=== PATIENT | female | born 1980 | race Caucasian/White ===

== ENCOUNTER 2019-03-06 12:42 | Inpatient (IN) | payer MEDICAID ==
[2019-03-06] MEDS ORDERED: Sodium Chloride 0.9% 1,000 ML IV ONE (13:14)
[2019-03-06 13:42] LABS: % EOSINOPHILS 0.7 % (0.0-5.0); % LYMPHOCYTES 13.8 % (20.0-50.0); % MONOCYTES 5.6 % (2.0-10.0); % NEUTROPHILS 78.9 % (40.0-80.0); BASOPHILE ABSOLUTE 0.1 Th/cumm (0-0.2); EOSINOPHILE ABSOLUTE 0.1 Th/cmm (0.1-0.4); HEMATOCRIT 38.8 % (41.0-60); HEMOGLOBIN 12.6 gm/dL (12-16); LYMPHOCYTE ABSOLUTE 1.6 Th/cmm (1.5-3.0); MEAN CELL VOLUME 86.8 fl (81-100); MEAN CORPUSCULAR HEMOGLOBIN 28.2 pg (27.0-31.0); MEAN CORPUSCULAR HGB CONC 32.4 pg (28.0-36.0); MEAN PLATELET VOLUME 10.1 fl; MONOCYTE ABSOLUTE 0.6 Th/cmm (0.3-1.0); NEUTROPHILE ABSOLUTE 9.2 Th/cmm (1.8-8.0); PLATELET COUNT 209 Th/cmm (150-400); RED BLOOD COUNT 4.46 Mil/cmm (3.80-5.10); RED CELL DISTRIBUTION WIDTH 12.9 % (11.5-20.0); WHITE BLOOD COUNT 11.6 Th/cmm (4.8-10.8)
--- NOTE | 2019-03-06 14:08 | ED Physician Chart ---
ED Chief Complaint/HPI - Patient Information Date Seen:: 03/06/19 Time Seen:: 12:55 Chief Complaint:: Abdominal Pain History of Present Illness:: onset x 6 hours of diffuse abdominal pain, N/V/D x 13; no report of trauma, H/As , S/T, neck pain, cough, C/P, SOB, A/C, VB, VD, fever, chills, or urinary s/s Allergies:: Allergies Allergy/AdvReac Type Severity Reaction Status Date / Time No Known Allergies Allergy Verified 03/06/19 13:09 Vitals:: Vital Signs - 8 hr 03/06/19 12:55 Temp 97.9 F HR 101 RR 18 BP 92/59 O2 Sat % 98 Historian:: Patient, Family Member Review:: Nurse's Note Reviewed, Old Chart Reviewed ED Review of Systems - Review of Systems General/Constitutional: No fever, No chills, No weight loss, No weakness, No diaphoresis, No edema, No loss of appetite Skin: No skin lesions, No rash, No bruising Head: No headache, No light-headedness Eyes: No loss of vision, No pain, No diplopia ENT: No earache, No nasal drainage, No sore throat, No tinnitus Neck: No neck pain, No swelling, No thyromegaly, No stiffness, No mass noted Cardio Vascular: No chest pain, No palpitations, No PND, No orthopnea, No edema Pulmonary: No SOB, No cough, No sputum, No wheezing GI: Nausea, Vomiting, Diarrhea, Pain, No melena, No hematochezia, No constipation, No hematemesis G/U: No dysuria, No frequency, No hematuria, No nacturia Clinical Nurse Leader: No vaginal discharge, No abnormal vaginal bleed, No contraction Musculoskeletal: No bone or joint pain, No back pain, No muscle pain Endocrine: No polyuria, No polydipsia Psychiatric: Prior psych history, No depression, Anxiety, No suicidal ideation, No homicidal ideation, No auditory hallucination, No visual hallucination Hematopoietic: No bruising, No lymphadenopathy Allergic/Immuno: No urticaria, No angioedema Neurological: No syncope, No focal symptoms, No weakness, No paresthesia, No headache, No seizure, No dizziness, No confusion, No vertigo ED Past Medical History - Past Medical History Obtainable: Yes Past Medical History: Other (Mental Retardation) Family History: HTN Social History: Non Smoker, No Alcohol, No Drug Use, Single, Care Facility Surgical History: None Psychiatricy History: Other (MR) Medication: Reviewed Family Medical History - Family Member Mother History Unknown: Yes ED Physical Exam - Physical Examination General/Constitutional: Awake, Well-developed, well-nourished, Alert, No distress, GCS 15, Non-toxic appearing, Ambulatory Head: Atraumatic Eyes: Lids, conjuctiva normal, PERRL, EOMI Skin: Nl inspection, No rash, No skin lesions, No ecchymosis, Well hydrated, No lymphadenopathy ENMT: External ears, nose nl, TM canals nl, Nasal exam nl, Lips, teeth, gums nl , Oropharynx nl, Tonsils nl Neck: Nontender, Full ROM w/o pain, No JVD, No nuchal rigidity, No bruit, No mass, No stridor Other Neck comments:: supple; no meningeal signs; no cervical tenderness; no bruits Respiratory: Nl effort/Exclusion, Clear to Auscultation, No Wheeze/Rhonchi/Rales Cardio Vascular: RRR, No murmur, gallop, rubs, NL S1 S2, Carotid/Femoral/Distal pulses equal bilaterally GI: No tenderness/rebounding/guarding, No organomegaly, No hernia, Normal BS's, Nondistended, No mass/bruits, No McBurney tenderness, Rectum exam nl Other GI comments:: no pulsatile masses; good BS : No CVA tenderness Extremities: No tenderness or effusion, Full ROM, normal strength in all extremities, No edema, Normal digits & nails Neuro/Psych: Alert/oriented, DTR's symmetric, Normal sensory exam, Normal motor strength, Judgement/insight normal, Mood normal, Normal gait, No focal deficits Misc: Normal back, No paraspinal tenderness ED Labs/Radiology/EKG Results - Lab Results Results: Laboratory Tests 03/06/19 03/06/19 13:30 13:30 WBC 11.6 H RBC 4.46 Hgb 12.6 Hct 38.8 L MCV 86.8 MCH 28.2 MCHC Differential 32.4 RDW 12.9 Plt Count 209 MPV 10.1 Neutrophils % 78.9 Lymphocytes % 13.8 L Monocytes % 5.6 Eosinophils % 0.7 Basophils % 1.0 Serum , Qual NEGATIVE Comments:: Reviewed - Radiology Results Comments:: Refused by pt - EKG Interpretations Comments:: Refused by pt ED Septic Shock - . Is Septic Shock (SBP<90, OR Lactate>4 mmol\L) present?: No - <6hrs of presentation: Vital Signs: Vital Signs - 8 hr 03/06/19 12:55 Temp 97.9 F HR 101 RR 18 BP 92/59 O2 Sat % 98 ED Reassessment (Disposition) - Reassessment Reassessment Condition:: Improved - Diagnosis Diagnosis:: Abdominal Pain; N/V/D; AGE; Gastritis; Anxiety; Dehydration; Hypovolemia; Hypotension; Tachycardia - Aftercare/Follow up Instructions Aftercare/Follow-Up Instructions:: Counseled pt regarding lab results/diagnosis & need follow up, Counseled pt & family regarding lab results/diagnosis & need follow up - Patient Disposition Discharge/Transfer:: Acute Care w/in this hosp Accepting Physician:: Dr. Robison Time Called:: 1445 Time Responded:: 14:45 Admitted to:: Telemetry Spoke to:: Dr. Robison Admitting Medical Physician:: Dr. Robison Condition at Disposition:: Stable, Improved
[2019-03-06 14:32] LABS: URINE SOURCE CLEAN C
[2019-03-06 14:37] LABS: URINE BILIRUBIN NEGATIVE (NEGATIVE); URINE BLOOD NEGATIVE (NEGATIVE); URINE GLUCOSE (UA) NEGATIVE (NEGATIVE); URINE KETONE NEGATIVE (NEGATIVE); URINE LEUKOCYTE ESTERASE NEGATIVE (NEGATIVE); URINE NITRATE NEGATIVE (NEGATIVE); URINE PROTEIN NEGATIVE (NEGATIVE); URINE UROBILINOGEN 0.2 E.U./dL (0.2 - 1.0)
[2019-03-06 15:04] LABS: URINE COLOR STRAW
[2019-03-06 15:09] LABS: URINE CLARITY CLEAR (CLEAR); URINE MICROSCOPIC INDICATED? NO
[2019-03-06 16:35] LABS: CHLORIDE 99 mEq/L (98-107); POTASSIUM SERUM 3.7 mEq/L (3.5-5.1); SODIUM SERUM 132 mEq/L (136-145)
[2019-03-06 16:36] LABS: ALB/GLOB RATIO 1.1 (1.0-1.8); ALBUMIN 3.8 gm/dL (3.7-5.3); ANION GAP 13.7 (7.0-16.0); BUN - UREA NITROGEN 19 mg/dL (7-25); CREATININE - SERUM 0.8 mg/dL (0.6-1.2); GFR AFRICAN-AMERICAN > 60.0 ml/min (>90); GFR NON AFRICAN-AMERICAN > 60.0 ml/min; GLUCOSE 122 mg/dL (70-105); TOTAL PROTEIN,SERUM 7.3 gm/dL (6.0-8.3)
[2019-03-06 16:37] LABS: ALKALINE PHOSPHATASE 72 U/L (34-104); AMYLASE SERUM 202 U/L (29-103); BILIRUBIN,TOTAL 0.3 mg/dL (0.3-1.0); LIPASE 94 U/L (11-82); SGOT 13 U/L (13-39); SGPT/ALT 22 U/L (7-52)
[2019-03-06] MEDS ORDERED: Morphine Sulfate 2 mg/mL 1mL Syr IV PRN ×2 (17:20→17:21)
--- NOTE | 2019-03-06 18:30 | Consultation ---
Consult Note - Consult Note Service Date: 03/06/19 Referring Physician: Ry Robison Consult Note: PHYSICIAN Consultation Note: Date of Admission: 03/06/19 Purpose of Consultation: gallstones non communicative Chief Complaint: non communicative History of Present Illness: Patient JALEN DINERO was admitted to [facility] with INTRACTABLE ABDOMINAL PAIN, VOMITING. Past Medical History: Allergies Allergy/AdvReac Type Severity Reaction Status Date / Time No Known Allergies Allergy Verified 03/06/19 13:09 Vital Signs Temp 97.5 F 03/06/19 16:00 Pulse 85 03/06/19 16:00 Resp 16 03/06/19 16:00 BP 110/70 03/06/19 16:00 Pulse Ox 98 03/06/19 16:00 Intake & Output 03/05/19 03/06/19 03/06/19 18:59 06:59 18:59 Intake Total 1000 Balance 1000 Weight (lbs) 135 lb Intake: Intake, IV Amount 1000 Other: Weight Source Patient stated Laboratory Results - last 24 hr 03/06/19 03/06/19 03/06/19 13:30 13:30 13:30 WBC 11.6 H RBC 4.46 Hgb 12.6 Hct 38.8 L MCV 86.8 MCH 28.2 MCHC Differential 32.4 RDW 12.9 Plt Count 209 MPV 10.1 Neutrophils % 78.9 Lymphocytes % 13.8 L Monocytes % 5.6 Eosinophils % 0.7 Basophils % 1.0 Sodium 132 L Potassium 3.7 Chloride 99 Carbon Dioxide 23.0 Anion Gap 13.7 BUN 19 Creatinine 0.8 Est GFR ( Amer) > 60.0 Est GFR (Non-Af Amer) > 60.0 BUN/Creatinine Ratio 23.8 Glucose 122 H Calcium 9.0 Total Bilirubin 0.3 AST 13 ALT 22 Alkaline Phosphatase 72 Troponin I < 0.01 L Total Protein 7.3 Albumin 3.8 Globulin 3.5 Albumin/Globulin Ratio 1.1 Amylase 202 H Lipase 94 H Serum , Qual Urine Source Urine Color Urine Clarity Urine pH Ur Specific [place] Urine Protein Urine Glucose (UA) Urine Ketones Urine Blood Urine Nitrate Urine Bilirubin Urine Urobilinogen Ur Leukocyte Esterase Urine Test 03/06/19 03/06/19 03/06/19 13:30 14:20 14:20 WBC RBC Hgb Hct MCV MCH MCHC Differential RDW Plt Count MPV Neutrophils % Lymphocytes % Monocytes % Eosinophils % Basophils % Sodium Potassium Chloride Carbon Dioxide Anion Gap BUN Creatinine Est GFR ( Amer) Est GFR (Non-Af Amer) BUN/Creatinine Ratio Glucose Calcium Total Bilirubin AST ALT Alkaline Phosphatase Troponin I Total Protein Albumin Globulin Albumin/Globulin Ratio Amylase Lipase Serum , Qual NEGATIVE Urine Source CLEAN C Urine Color STRAW Urine Clarity CLEAR Urine pH 6.0 Ur Specific [place] 1.025 Urine Protein NEGATIVE Urine Glucose (UA) NEGATIVE Urine Ketones NEGATIVE Urine Blood NEGATIVE Urine Nitrate NEGATIVE Urine Bilirubin NEGATIVE Urine Urobilinogen 0.2 Ur Leukocyte Esterase NEGATIVE Urine Test NEGATIVE Home Medication Medication Instructions Recorded Type Benztropine [Cogentin*] 1 tab PO HS 03/06/19 History Benztropine [Cogentin*] 2 tab PO DAILY 03/06/19 History Clonazepam [Klonopin] 1 tab PO TID 03/06/19 History Clonidine HCl [Clonidine HCl ER] 0.1 mg PO HS 03/06/19 History Cyproheptadine [Periactin] 1 tab PO BID 03/06/19 History Diphenhydramine HCl [Banophen] 75 mg PO HS 03/06/19 History FLUoxetine HCL [Prozac*] 1 cap PO DAILY 03/06/19 History Gabapentin 300 mg PO BID 03/06/19 History Ibuprofen 1 tab PO TID 03/06/19 History Levothyroxine [Synthroid] 0.5 tab PO DAILY 03/06/19 History Loperamide [Imodium] 1 cap PO PRN PRN 03/06/19 History Mag Hydrox/Al Hydrox/Simeth 30 ml PO Q6HR 03/06/19 History [Almacone Liquid] Magnesium Hydroxide [Milk of 30 ml PO BID 03/06/19 History Magnesia] OLANZapine [ZyPREXA] 1 tab PO BID 03/06/19 History Promethazine DM 6.25/15mg-5mL 1 tsp PO Q48HR PRN 03/06/19 History [Phenergan DM 6.25/15mg-5 mL] QUEtiapine Fumarate [SEROquel] 1 tab PO TID 03/06/19 History QUEtiapine Fumarate [SEROquel] 300 mg PO TID 03/06/19 History Sennosides/Docusate Sodium [Stool 1 tab PO BID 03/06/19 History Softener-Laxative Tablet] Trazodone HCl 100 mg PO HS 03/06/19 History Zolpidem Tartrate [Ambien] 5 mg PO HS 03/06/19 History Current Medications Generic Name Dose Route Start Last Admin Trade Name Freq PRN Reason Stop Dose Admin Sodium Chloride 1,000 mls @ 0 mls/hr 03/06/19 13:14 03/06/19 13:44 Nacl 0.9% IV 03/06/19 13:15 999 mls/hr .Q0M ONE Administration Wide Open Dextrose/Sodium Chloride 1,000 mls @ 75 mls/hr 03/06/19 17:30 D5-0.45ns IV 05/05/19 17:29 .[id number] CHARO Lorazepam 1 mg 03/06/19 13:45 03/06/19 13:47 Ativan IVP 03/06/19 13:46 1 mg NOW STA Administration Protocol Morphine Sulfate 1 mg 03/06/19 17:20 Morphine IV 05/05/19 17:29 Q4H PRN Pain (Moderate) Morphine Sulfate 2 mg 03/06/19 17:21 Morphine IV 05/05/19 17:29 Q4H PRN Pain (Severe) Ondansetron HCl 4 mg 03/06/19 13:14 03/06/19 13:41 Zofran IV 03/06/19 13:15 4 mg X1 ONE Administration Ondansetron HCl 4 mg 03/06/19 17:22 Zofran IV 05/05/19 17:29 Q6H PRN Nausea / Vomiting Review of Systems: A 12 point ROS was reviewed with the pertinent positive and negatives noted in the HPI. Social History Smoking Status Never smoker Physical Exam: General: non communicative doesnt look in distress HEENT: Neck: Cardio: Respiratory: Abdominal: difficult to examine Genital/Urinary: Extremities: Neurological: Assessment: gallstones Plan: HIDA scan if positive would probably recommend lapararoscopic vs open cholecystectomy Iman Harris Raffael [id number]
[2019-03-06] MEDS: D5-0.45NS 1,000 ML IV SCH (20:48)
[2019-03-07 06:26] LABS: % BASOPHILS 0.3 % (0.0-2.0); % EOSINOPHILS 3.3 % (0.0-5.0); % LYMPHOCYTES 18.4 % (20.0-50.0); % MONOCYTES 8.6 % (2.0-10.0); % NEUTROPHILS 69.4 % (40.0-80.0); EOSINOPHILE ABSOLUTE 0.3 Th/cmm (0.1-0.4); HEMATOCRIT 36.5 % (41.0-60); HEMOGLOBIN 11.9 gm/dL (12-16); LYMPHOCYTE ABSOLUTE 1.8 Th/cmm (1.5-3.0); MEAN CELL VOLUME 85.6 fl (81-100); MEAN CORPUSCULAR HGB CONC 32.7 pg (28.0-36.0); MEAN PLATELET VOLUME 10.4 fl; MONOCYTE ABSOLUTE 0.8 Th/cmm (0.3-1.0); NEUTROPHILE ABSOLUTE 6.8 Th/cmm (1.8-8.0); PLATELET COUNT 199 Th/cmm (150-400); RED BLOOD COUNT 4.27 Mil/cmm (3.80-5.10); RED CELL DISTRIBUTION WIDTH 12.9 % (11.5-20.0); WHITE BLOOD COUNT 9.7 Th/cmm (4.8-10.8)
--- NOTE | 2019-03-07 09:00 | Diagnostic Imaging Report ---
CT abdomen and pelvis without intravenous contrast Indication: Abdominal pain vomiting, rule out appendicitis Comparison: None, Technique: Axial images were obtained from the lung bases to the bilateral proximal femurs without IV contrast. Coronal reconstructions were made. total DLP: 421, CTDI9.5 FINDINGS: Hypoventilatory changes of the right lung base is noted elevation of the right hemidiaphragm. Small right pleural effusion is noted Assessment of the solid organs is limited due to lack of IV contrast and body habitus. No focal hepatic lesions. No focal splenic, pancreatic, or adrenal lesions. No evidence of hydronephrosis or nephrolithiasis. There is significant amount of stool within the colon greatest along the distal colon. The appendix is mildly prominent measuring up to 9 mm. Slight haziness of the periappendiceal fat planes is noted. No free fluid or free air. Distended stomach is noted with fluid contents. The osseous structures are intact. IMPRESSION: Mild prominence of the appendix with slight haziness of the periappendiceal fat planes. Findings may reflect early acute appendicitis in the appropriate clinical setting. Clinical correlation follow-up recommended Copious stool throughout the colon past gas distended stomach. Small right pleural effusion. Marked elevation of the right hemidiaphragm.
[2019-03-07 10:57] LABS: ANION GAP 17.7 (7.0-16.0); BUN - UREA NITROGEN 10 mg/dL (7-25); CALCIUM SERUM 8.3 mg/dL (8.6-10.3); CHLORIDE 106 mEq/L (98-107); CREATININE - SERUM 0.7 mg/dL (0.6-1.2); GFR AFRICAN-AMERICAN > 60.0 ml/min (>90); GFR NON AFRICAN-AMERICAN > 60.0 ml/min; GLUCOSE 90 mg/dL (70-105); POTASSIUM SERUM 3.7 mEq/L (3.5-5.1)
[2019-03-07 10:58] LABS: AMYLASE SERUM 85 U/L (29-103); LIPASE 132 U/L (11-82); SODIUM SERUM 140 mEq/L (136-145)
[2019-03-07] MEDS: D5-0.45NS 1,000 ML IV SCH ×2 (11:24→21:57)
--- NOTE | 2019-03-07 22:43 | History and Physical ---
History of Present Illness - HPI Chief Complaint: abdominal pain HPI: 38-year old female a [facility] resident x1 day history of abdominal pain no reports of fever. Vital Signs: Last Vital Signs Temp 99.8 F 03/07/19 20:00 Pulse 101 03/07/19 20:00 Resp 18 03/07/19 20:00 BP 133/72 03/07/19 20:00 Pulse Ox 98 03/07/19 20:00 Past Medical History Other History: MR Family Medical History - Family Member Mother History Unknown: Yes Social History Smoke: No Alcohol: None Drugs: None Lives: Sn[facility] - Medications Home Medications: Home Medication Medication Instructions Recorded Type Benztropine [Cogentin*] 1 tab PO HS 03/06/19 History Benztropine [Cogentin*] 2 tab PO DAILY 03/06/19 History Clonazepam [Klonopin] 1 tab PO TID 03/06/19 History Clonidine HCl [Clonidine HCl ER] 0.1 mg PO HS 03/06/19 History Cyproheptadine [Periactin] 1 tab PO BID 03/06/19 History Diphenhydramine HCl [Banophen] 75 mg PO HS 03/06/19 History FLUoxetine HCL [Prozac*] 1 cap PO DAILY 03/06/19 History Gabapentin 300 mg PO BID 03/06/19 History Ibuprofen 1 tab PO TID 03/06/19 History Levothyroxine [Synthroid] 0.5 tab PO DAILY 03/06/19 History Loperamide [Imodium] 1 cap PO PRN PRN 03/06/19 History Mag Hydrox/Al Hydrox/Simeth 30 ml PO Q6HR 03/06/19 History [Almacone Liquid] Magnesium Hydroxide [Milk of 30 ml PO BID 03/06/19 History Magnesia] OLANZapine [ZyPREXA] 1 tab PO BID 03/06/19 History Promethazine DM 6.25/15mg-5mL 1 tsp PO Q48HR PRN 03/06/19 History [Phenergan DM 6.25/15mg-5 mL] QUEtiapine Fumarate [SEROquel] 1 tab PO TID 03/06/19 History QUEtiapine Fumarate [SEROquel] 300 mg PO TID 03/06/19 History Sennosides/Docusate Sodium [Stool 1 tab PO BID 03/06/19 History Softener-Laxative Tablet] Trazodone HCl 100 mg PO HS 03/06/19 History Zolpidem Tartrate [Ambien] 5 mg PO HS 03/06/19 History - Allergies Allergies/Adverse Reactions: Allergies Allergy/AdvReac Type Severity Reaction Status Date / Time No Known Allergies Allergy Verified 03/06/19 13:09 Review of Systems - Review of Systems Constitutional: Report: Fever Eyes: Report: No Significant Respiratory: Report: Cough Cardiovascular: Report: No Significant Neurological: Report: Weakness Physical Exam - Physical Exam HEENT: Report: Ears Nose Throat within normal limits Neck: Report: Within normal limits Cardiovascular Systems: Report: Regular, Rate and Rhythm Respiratory: Report: Breath Sounds are within normal limits Abdomen: Report: Other (distended) Extremities: Report: Non-tender to palpation. Skin: Report: Warm, Dry - Lab Results All Lab Results last 24 hours: Laboratory Results - last 24 hr 03/07/19 03/07/19 03/07/19 05:30 05:30 05:34 WBC 9.7 RBC 4.27 Hgb 11.9 L Hct 36.5 L MCV 85.6 MCH 28.0 MCHC Differential 32.7 RDW 12.9 Plt Count 199 MPV 10.4 Neutrophils % 69.4 Lymphocytes % 18.4 L Monocytes % 8.6 Eosinophils % 3.3 Basophils % 0.3 Sodium 140 Potassium 3.7 Chloride 106 Carbon Dioxide 20.0 L Anion Gap 17.7 H BUN 10 Creatinine 0.7 Est GFR ( Amer) > 60.0 Est GFR (Non-Af Amer) > 60.0 BUN/Creatinine Ratio 14.3 Glucose 90 POC Glucose 85 Calcium 8.3 L Amylase 85 Lipase 132 H - Assessment Assessment: fecal impaction abdominal pain MR - Plan Plan: surgical consult admit to [facility] npo iv fluid as per order sheet
[2019-03-07] MEDS ORDERED: Promethazine DM 6.25/15mg-5mL 5 ML SYR PO PRN (22:51)
--- NOTE | 2019-03-07 23:22 | Consultation ---
DATE OF CONSULTATION: 03/07/2019 INPATIENT GASTROINTESTINAL CONSULTATION CONSULTING PHYSICIAN: Dr. Robison. REASON FOR CONSULTATION: Abdominal pain, fecal impaction. HISTORY OF PRESENT ILLNESS: The patient is a 38-year-old female with history of developmental delay, mental retardation, who was admitted to the hospital apparently with abdominal pain. The history is entirely obtained from the chart and the nursing staff as the patient is nonverbal herself. Apparently, the patient had indicated abdominal pain and had episodes of nausea and vomiting at her nursing facility prior to admission, which is why she was sent into the Emergency Room. Here, she was admitted and had a CT scan that showed fecal impaction as well as possible early appendicitis. Additionally, there was some comment on the CT scan of possible gallstones. At the current time, the patient is given the contracted position. She is not indicating any acute distress. PAST MEDICAL HISTORY: Developmental delay and mental retardation. PAST SURGICAL HISTORY: Not obtainable. FAMILY HISTORY: Not obtainable. SOCIAL HISTORY: The patient lives at a nursing facility with 24-hour care. No documented history of illicit drug use. ALLERGIES: There are no known drug allergies. REVIEW OF SYSTEMS: Not possible as the patient is not able to participate in interview. CURRENT MEDICATIONS: Include IV fluid, morphine, Zofran. PHYSICAL EXAMINATION: VITAL SIGNS: The blood pressure is 117/69, pulse is 109 beats per minute, temperature 99.4, oxygenation 97%. GENERAL: The patient is on her side. She is alert and oriented x 0. She does not appear to be in acute distress. HEAD, EYES, EARS, NOSE AND THROAT: Normocephalic, atraumatic appearing head. Pupils are equal and reactive to light. Extraocular muscles appear to be intact. There are moist mucous membranes. NECK: There is no obvious JVD or thyromegaly. CHEST: There are no crackles, otherwise clear. CARDIOVASCULAR: S1, S2 are present, tachycardic. ABDOMEN: Soft on palpation. There is no obvious guarding or rebound. EXTREMITIES: 1+ pitting edema with venous stasis changes. Pulses are not present. SKIN: There is no obvious jaundice. LABORATORY DATA: White blood cell count is 9.7, hemoglobin 11.9, platelet count is 199. Total bilirubin 0.3, AST 13, ALT 22, lipase 94. IMAGING STUDIES: An abdomen and pelvis CT scan was performed and this shows mild prominence of the appendix with slight haziness of the periappendiceal fat planes suggesting of possible early acute appendicitis; on the final read of the CT, there is no mention of gallstones; however, there is mention of copious stool throughout the colon as well as a fluid distended stomach. IMPRESSION: This is a 38-year-old female with history of developmental delay, admitted to the hospital with abdominal pain, nausea and vomiting. 1. Abdominal pain. 2. Nausea and vomiting. 3. Constipation and possible fecal impaction. 4. Possible early appendicitis. DISCUSSION: Very difficult to get a history or to determine exactly clinically what is going on as the patient is not communicative. Radiologically, it appears she has a great stool burden as well as possible early appendicitis. An ultrasound and HIDA scan have been ordered, but not yet performed as the patient was not cooperating with the procedures. She does also have a fluid filled stomach, which may be due to the fecal impaction. A Surgical consult has been placed and is following along. In terms of the radiographic findings of fecal impaction, we can treat this with enemas as well as oral laxatives. If she has further vomiting, I would suggest inserting an NG tube to low intermittent suction and this can also be used to administer laxatives in that scenario. RECOMMENDATIONS: 1. We will order tap water enemas to be given every 12 hours for 1 or 2 days. 2. MiraLax at twice daily dosing. 3. We can retry the HIDA scan and ultrasound with possible small doses of IV Ativan given prior to this. 4. Surgical input regarding early appendicitis. 5. If there is further vomiting episodes, would insert an NG tube to low intermittent suction. Thank you for allowing me to participate in this patient's care. Please call with any further questions. JOB# [id number]
[2019-03-08] MEDS: Maalox 30 mL Cup PO SCH ×4 (00:24→18:17)
[2019-03-08] MEDS ORDERED: Levothyroxine 0.05 Mg Tab PO SCH (07:30)
--- NOTE | 2019-03-08 09:11 | GI Progress Note ---
Subjective - Review of Systems Service Date: 03/08/19 Subjective: Unclear if the pt received the enemas. She did not allow for HIDA or US. Objective - Results Result Diagrams: 03/07/19 05:30 03/07/19 05:30 Recent Labs: Laboratory Last Values WBC 9.7 Th/cmm (4.8-10.8) 03/07/19 05:30 RBC 4.27 Mil/cmm (3.80-5.10) 03/07/19 05:30 Hgb 11.9 gm/dL (12-16) L 03/07/19 05:30 Hct 36.5 % (41.0-60) L 03/07/19 05:30 MCV 85.6 fl (81-100) 03/07/19 05:30 MCH 28.0 pg (27.0-31.0) 03/07/19 05:30 MCHC Differential 32.7 pg (28.0-36.0) 03/07/19 05:30 RDW 12.9 % (11.5-20.0) 03/07/19 05:30 Plt Count 199 Th/cmm (150-400) 03/07/19 05:30 MPV 10.4 fl 03/07/19 05:30 Neutrophils % 69.4 % (40.0-80.0) 03/07/19 05:30 Lymphocytes % 18.4 % (20.0-50.0) L 03/07/19 05:30 Monocytes % 8.6 % (2.0-10.0) 03/07/19 05:30 Eosinophils % 3.3 % (0.0-5.0) 03/07/19 05:30 Basophils % 0.3 % (0.0-2.0) 03/07/19 05:30 Sodium 140 mEq/L (136-145) 03/07/19 05:30 Potassium 3.7 mEq/L (3.5-5.1) 03/07/19 05:30 Chloride 106 mEq/L (98-107) 03/07/19 05:30 Carbon Dioxide 20.0 mEq/L (21.0-31.0) L 03/07/19 05:30 Anion Gap 17.7 (7.0-16.0) H 03/07/19 05:30 BUN 10 mg/dL (7-25) 03/07/19 05:30 Creatinine 0.7 mg/dL (0.6-1.2) 03/07/19 05:30 Est GFR ( Amer) > 60.0 ml/min (>90) 03/07/19 05:30 Est GFR (Non-Af Amer) > 60.0 ml/min 03/07/19 05:30 BUN/Creatinine Ratio 14.3 03/07/19 05:30 Glucose 90 mg/dL (70-105) 03/07/19 05:30 POC Glucose 85 MG/DL (70 - 105) 03/07/19 05:34 Calcium 8.3 mg/dL (8.6-10.3) L 03/07/19 05:30 Total Bilirubin 0.3 mg/dL (0.3-1.0) 03/06/19 13:30 AST 13 U/L (13-39) 03/06/19 13:30 ALT 22 U/L (7-52) 03/06/19 13:30 Alkaline Phosphatase 72 U/L (34-104) 03/06/19 13:30 Troponin I < 0.01 ng/mL (0.01-0.05) L 03/06/19 13:30 Total Protein 7.3 gm/dL (6.0-8.3) 03/06/19 13:30 Albumin 3.8 gm/dL (3.7-5.3) 03/06/19 13:30 Globulin 3.5 gm/dL 03/06/19 13:30 Albumin/Globulin Ratio 1.1 (1.0-1.8) 03/06/19 13:30 Amylase 85 U/L (29-103) 03/07/19 05:30 Lipase 132 U/L (11-82) H 03/07/19 05:30 Serum , Qual NEGATIVE (NEGATIVE) 03/06/19 13:30 Urine Source CLEAN C 03/06/19 14:20 Urine Color STRAW 03/06/19 14:20 Urine Clarity CLEAR (CLEAR) 03/06/19 14:20 Urine pH 6.0 (4.6 - 8.0) 03/06/19 14:20 Ur Specific [place] 1.025 (1.005-1.030) 03/06/19 14:20 Urine Protein NEGATIVE mg/dL (NEGATIVE) 03/06/19 14:20 Urine Glucose (UA) NEGATIVE mg/dL (NEGATIVE) 03/06/19 14:20 Urine Ketones NEGATIVE mg/dL (NEGATIVE) 03/06/19 14:20 Urine Blood NEGATIVE (NEGATIVE) 03/06/19 14:20 Urine Nitrate NEGATIVE (NEGATIVE) 03/06/19 14:20 Urine Bilirubin NEGATIVE (NEGATIVE) 03/06/19 14:20 Urine Urobilinogen 0.2 E.U./dL (0.2 - 1.0) 03/06/19 14:20 Ur Leukocyte Esterase NEGATIVE (NEGATIVE) 03/06/19 14:20 Urine Test NEGATIVE 03/06/19 14:20 - Physical Exam Vitals and I&O: Vital Signs Temp 100 F 03/08/19 08:58 Pulse 105 03/08/19 08:58 Resp 19 03/08/19 08:58 BP 125/61 03/08/19 08:58 Pulse Ox 94 03/08/19 08:58 Intake & Output 03/07/19 03/08/19 03/08/19 18:59 06:59 18:59 Intake Total 1000 791.25 Balance 1000 791.25 Weight (lbs) 64.592 kg Intake: Intake, IV Amount 1000 791.25 D5-0.45NS 1,000 ml @ 75 1000 791.25 mls/hr IV .[id number] [facility] Rx #:[id number] Other: # Voids 3 Weight Source Bedscale Active Medications: Current Medications Al Hydrox/Mg Hydrox/Simethicone (Maalox) 30 ml PO Q6HR [facility] Stop: 05/07/19 00:00 Last Admin: 03/08/19 06:06 Dose: 30 ml Benztropine Mesylate (Cogentin) 1 mg PO HS [facility] Stop: 05/07/19 20:59 Benztropine Mesylate (Cogentin) 2 mg PO DAILY [facility] Stop: 05/07/19 08:59 Clonazepam (Klonopin) 1 mg PO TID [facility] Stop: 05/07/19 08:59 Cyproheptadine HCl (Periactin) 4 mg PO BID [facility] Stop: 05/07/19 08:59 Diphenhydramine HCl (Benadryl) 75 mg PO HS [facility] Stop: 05/07/19 20:59 Fluoxetine HCl (Prozac) 20 mg PO DAILY [facility]; Protocol Stop: 05/07/19 08:59 Gabapentin (Neurontin) 300 mg PO BID [facility] Stop: 05/07/19 08:59 Dextrose/Sodium Chloride (D5-0.45ns) 1,000 mls @ 75 mls/hr IV .[id number] [facility] Stop: 05/05/19 17:29 Last Admin: 03/07/19 21:57 Dose: 75 mls/hr Ibuprofen (Motrin) mg PO TID [facility] Stop: 05/07/19 08:59 Levothyroxine Sodium (Synthroid) 0.5 mg PO QDAC [facility] Stop: 05/07/19 07:29 Loperamide HCl (Imodium) 2 mg PO PRN PRN PRN Reason: Diarrhea Stop: 05/06/19 22:50 Lorazepam (Ativan) 1 mg IVP Q4HR PRN; Protocol PRN Reason: Agitation Stop: 05/07/19 08:27 Morphine Sulfate (Morphine) 1 mg IV Q4H PRN PRN Reason: Pain (Moderate) LEVEL 4-6 Stop: 05/05/19 17:29 Morphine Sulfate (Morphine) 2 mg IV Q4H PRN PRN Reason: Pain (Severe) LEVEL 7-10 Stop: 05/05/19 17:29 Last Admin: 03/07/19 21:59 Dose: 2 mg Olanzapine (Zyprexa) 5 mg PO BID [facility]; Protocol Stop: 05/07/19 08:59 Ondansetron HCl (Zofran) 4 mg IV Q6H PRN PRN Reason: Nausea / Vomiting Stop: 05/05/19 17:29 Promethazine HCl/Dextromethorphan (Phenergan Dm 6.25/15mg-5 Ml) 5 ml PO Q48HR PRN PRN Reason: Cough Stop: 05/06/19 22:50 Quetiapine Fumarate (Seroquel) 300 mg PO TID [facility]; Protocol Stop: 05/07/19 08:59 Sennosides (Senna Plus 50 Mg-8.6 Mg) 1 tab PO BID [facility] Stop: 05/07/19 08:59 Trazodone HCl (Desyrel) 100 mg PO HS [facility] Stop: 05/07/19 20:59 Zolpidem Tartrate (Ambien) 5 mg PO HS [facility] Stop: 05/07/19 20:59 General: Alert HEENT: Atraumatic Neck: Supple Cardiovascular: Regular rate Abdomen: Bowel sounds, Soft, Tender, no Hepatomegaly, no Distended, no Rebound, no Mass Assessment/Plan - Assessment Assessment: # Reported abd pain # Reported vomiting CT scan shows fecal impaction and possible early appendicitis. Surgery has seen the pt, currently managing conservatively. At current, difficult to ascertain if the pt has any abdominal symptoms. No obvious pain Plan: - tap water enemas given fecal impaction every 12 hrs for 1 day, then prn - miralax q12 - US and HIDA are ordered by the surgeon - re-instate diet after the US is finished - appendicitis as per surgery
[2019-03-08] MEDS: Docusate Sodium/Senna Tab PO SCH ×3 (10:16→18:25)
[2019-03-08] MEDS: Benztropine 1 MG TAB PO SCH ×2 (10:16→21:59)
[2019-03-08] MEDS: Cyproheptadine 4 mg Tab PO SCH ×3 (10:16→18:25)
--- NOTE | 2019-03-08 12:51 | Diagnostic Imaging Report ---
Exam: Ultrasound examination of the abdomen. HISTORY: Pain vomiting. Findings: Real-time ultrasound examination abdomen performed multiple planes. The study demonstrates normal echogenicity liver parenchyma. The gallbladder free of calculi the common bile duct measures 4.4 mm. Pancreas not seen. The kidneys demonstrate no evidence of obstructive uropathy or nephrolithiasis. The spleen is intact. No free fluid is noted. IMPRESSION: Unremarkable examination of the abdomen.
--- NOTE | 2019-03-08 17:48 | Internal Medicine Prog Note ---
Internal Medicine Subjective - Subjective Service Date: 03/08/19 Patient seen and examined:: with staff Patient is:: awake, verbal, other (Mentally delayed.) Patient Complaints of:: other (Abdominal pain.) Per staff patient has:: no adverse event, no episodes of fall Internal Medicine Objective - Results Result Diagrams: 03/07/19 05:30 03/07/19 05:30 Recent Labs: Laboratory Last Values WBC 9.7 Th/cmm (4.8-10.8) 03/07/19 05:30 RBC 4.27 Mil/cmm (3.80-5.10) 03/07/19 05:30 Hgb 11.9 gm/dL (12-16) L 03/07/19 05:30 Hct 36.5 % (41.0-60) L 03/07/19 05:30 MCV 85.6 fl (81-100) 03/07/19 05:30 MCH 28.0 pg (27.0-31.0) 03/07/19 05:30 MCHC Differential 32.7 pg (28.0-36.0) 03/07/19 05:30 RDW 12.9 % (11.5-20.0) 03/07/19 05:30 Plt Count 199 Th/cmm (150-400) 03/07/19 05:30 MPV 10.4 fl 03/07/19 05:30 Neutrophils % 69.4 % (40.0-80.0) 03/07/19 05:30 Lymphocytes % 18.4 % (20.0-50.0) L 03/07/19 05:30 Monocytes % 8.6 % (2.0-10.0) 03/07/19 05:30 Eosinophils % 3.3 % (0.0-5.0) 03/07/19 05:30 Basophils % 0.3 % (0.0-2.0) 03/07/19 05:30 Sodium 140 mEq/L (136-145) 03/07/19 05:30 Potassium 3.7 mEq/L (3.5-5.1) 03/07/19 05:30 Chloride 106 mEq/L (98-107) 03/07/19 05:30 Carbon Dioxide 20.0 mEq/L (21.0-31.0) L 03/07/19 05:30 Anion Gap 17.7 (7.0-16.0) H 03/07/19 05:30 BUN 10 mg/dL (7-25) 03/07/19 05:30 Creatinine 0.7 mg/dL (0.6-1.2) 03/07/19 05:30 Est GFR ( Amer) > 60.0 ml/min (>90) 03/07/19 05:30 Est GFR (Non-Af Amer) > 60.0 ml/min 03/07/19 05:30 BUN/Creatinine Ratio 14.3 03/07/19 05:30 Glucose 90 mg/dL (70-105) 03/07/19 05:30 POC Glucose 85 MG/DL (70 - 105) 03/07/19 05:34 Calcium 8.3 mg/dL (8.6-10.3) L 03/07/19 05:30 Total Bilirubin 0.3 mg/dL (0.3-1.0) 03/06/19 13:30 AST 13 U/L (13-39) 03/06/19 13:30 ALT 22 U/L (7-52) 03/06/19 13:30 Alkaline Phosphatase 72 U/L (34-104) 03/06/19 13:30 Troponin I < 0.01 ng/mL (0.01-0.05) L 03/06/19 13:30 Total Protein 7.3 gm/dL (6.0-8.3) 03/06/19 13:30 Albumin 3.8 gm/dL (3.7-5.3) 03/06/19 13:30 Globulin 3.5 gm/dL 03/06/19 13:30 Albumin/Globulin Ratio 1.1 (1.0-1.8) 03/06/19 13:30 Amylase 85 U/L (29-103) 03/07/19 05:30 Lipase 132 U/L (11-82) H 03/07/19 05:30 Serum , Qual NEGATIVE (NEGATIVE) 03/06/19 13:30 Urine Source CLEAN C 03/06/19 14:20 Urine Color STRAW 03/06/19 14:20 Urine Clarity CLEAR (CLEAR) 03/06/19 14:20 Urine pH 6.0 (4.6 - 8.0) 03/06/19 14:20 Ur Specific [place] 1.025 (1.005-1.030) 03/06/19 14:20 Urine Protein NEGATIVE mg/dL (NEGATIVE) 03/06/19 14:20 Urine Glucose (UA) NEGATIVE mg/dL (NEGATIVE) 03/06/19 14:20 Urine Ketones NEGATIVE mg/dL (NEGATIVE) 03/06/19 14:20 Urine Blood NEGATIVE (NEGATIVE) 03/06/19 14:20 Urine Nitrate NEGATIVE (NEGATIVE) 03/06/19 14:20 Urine Bilirubin NEGATIVE (NEGATIVE) 03/06/19 14:20 Urine Urobilinogen 0.2 E.U./dL (0.2 - 1.0) 03/06/19 14:20 Ur Leukocyte Esterase NEGATIVE (NEGATIVE) 03/06/19 14:20 Urine Test NEGATIVE 03/06/19 14:20 - Physical Exam Vitals and I&O: Vital Signs Temp 97.0 F 03/08/19 16:16 Pulse 90 03/08/19 16:16 Resp 19 03/08/19 16:16 BP 119/60 03/08/19 16:16 Pulse Ox 96 03/08/19 16:16 Intake & Output 03/07/19 03/08/19 03/08/19 18:59 06:59 18:59 Intake Total 1000 791.25 Balance 1000 791.25 Weight (lbs) 64.592 kg Intake: Intake, IV Amount 1000 791.25 D5-0.45NS 1,000 ml @ 75 1000 791.25 mls/hr IV .[id number] [facility] Rx #:[id number] Other: # Voids 3 Weight Source Bedscale Active Medications: Current Medications Al Hydrox/Mg Hydrox/Simethicone (Maalox) 30 ml PO Q6HR [facility] Stop: 05/07/19 00:00 Last Admin: 03/08/19 12:54 Dose: Not Given Benztropine Mesylate (Cogentin) 1 mg PO HS [facility] Stop: 05/07/19 20:59 Benztropine Mesylate (Cogentin) 2 mg PO DAILY [facility] Stop: 05/07/19 08:59 Last Admin: 03/08/19 10:16 Dose: Not Given Clonazepam (Klonopin) 1 mg PO TID [facility] Stop: 05/07/19 08:59 Cyproheptadine HCl (Periactin) 4 mg PO BID [facility] Stop: 05/07/19 08:59 Last Admin: 03/08/19 10:16 Dose: Not Given Diphenhydramine HCl (Benadryl) 75 mg PO HS [facility] Stop: 05/07/19 20:59 Fluoxetine HCl (Prozac) 20 mg PO DAILY [facility]; Protocol Stop: 05/07/19 08:59 Last Admin: 03/08/19 10:16 Dose: Not Given Gabapentin (Neurontin) 300 mg PO BID [facility] Stop: 05/07/19 08:59 Last Admin: 03/08/19 10:16 Dose: Not Given Dextrose/Sodium Chloride (D5-0.45ns) 1,000 mls @ 75 mls/hr IV .[id number] [facility] Stop: 05/05/19 17:29 Last Admin: 03/07/19 21:57 Dose: 75 mls/hr Ibuprofen (Motrin) 600 mg PO TID PRN PRN Reason: PAIN Stop: 05/07/19 08:59 Levothyroxine Sodium (Synthroid) 0.5 mg PO QDAC [facility] Stop: 05/07/19 07:29 Last Admin: 03/08/19 10:16 Dose: Not Given Loperamide HCl (Imodium) 2 mg PO PRN PRN PRN Reason: Diarrhea Stop: 05/06/19 22:50 Lorazepam (Ativan) 1 mg IVP Q4HR PRN; Protocol PRN Reason: Agitation Stop: 05/07/19 08:27 Last Admin: 03/08/19 15:28 Dose: 1 mg Morphine Sulfate (Morphine) 1 mg IV Q4H PRN PRN Reason: Pain (Moderate) LEVEL 4-6 Stop: 05/05/19 17:29 Morphine Sulfate (Morphine) 2 mg IV Q4H PRN PRN Reason: Pain (Severe) LEVEL 7-10 Stop: 05/05/19 17:29 Last Admin: 03/07/19 21:59 Dose: 2 mg Mupirocin (Bactroban Oint) 1 appl NS BID [facility] Stop: 03/13/19 09:01 Olanzapine (Zyprexa) 5 mg PO BID [facility]; Protocol Stop: 05/07/19 08:59 Last Admin: 03/08/19 10:16 Dose: Not Given Ondansetron HCl (Zofran) 4 mg IV Q6H PRN PRN Reason: Nausea / Vomiting Stop: 05/05/19 17:29 Promethazine HCl/Dextromethorphan (Phenergan Dm 6.25/15mg-5 Ml) 5 ml PO Q48HR PRN PRN Reason: Cough Stop: 05/06/19 22:50 Quetiapine Fumarate (Seroquel) 300 mg PO TID [facility]; Protocol Stop: 05/07/19 08:59 Last Admin: 03/08/19 15:16 Dose: Not Given Sennosides (Senna Plus 50 Mg-8.6 Mg) 1 tab PO BID [facility] Stop: 05/07/19 08:59 Last Admin: 03/08/19 10:16 Dose: Not Given Trazodone HCl (Desyrel) 100 mg PO HS [facility] Stop: 05/07/19 20:59 Zolpidem Tartrate (Ambien) 5 mg PO HS [facility] Stop: 05/07/19 20:59 Physical Exam: 38 y/o female patient has been having abdominal pain and has been vomiting. Abdominal ultrasound was done and it was negative for abnormalities. General: weak, other (Hx of mental delay (MR).) HEENT: NC/AT Neck: Supple, No JVD Lungs: CTAB Cardiovascular: RRR, Normal S1 Abdomen: tender, distended Extremities: clear Neurological: no change Internal Medicine Assmt/Plan - Assessment Assessment: vomitting fecal impaction abdominal pain MR - Plan Plan: npo iv fluid as per order sheet Nutritional Asmnt/Malnutr-PDOC - Dietary Evaluation Malnutrition Findings (Please click <Entered> for more info): see orders
[2019-03-08] MEDS: D5-0.45NS 1,000 ML IV SCH ×2 (22:01→22:02)
[2019-03-09] MEDS: Maalox 30 mL Cup PO SCH ×4 (00:12→18:20)
[2019-03-09 05:20] LABS: URINE SOURCE CLEAN C
[2019-03-09 05:22] LABS: URINE BILIRUBIN NEGATIVE (NEGATIVE); URINE BLOOD LARGE (NEGATIVE); URINE GLUCOSE (UA) NEGATIVE (NEGATIVE); URINE KETONE 15 mg/dL (NEGATIVE); URINE LEUKOCYTE ESTERASE LARGE (NEGATIVE); URINE MICROSCOPIC INDICATED? YES; URINE NITRATE POSITIVE (NEGATIVE); URINE PROTEIN 100 mg/dL (NEGATIVE)
[2019-03-09 05:36] LABS: URINE CLARITY HAZY (CLEAR); URINE COLOR YELLOW
[2019-03-09 06:10] LABS: % EOSINOPHILS 4.1 % (0.0-5.0); % LYMPHOCYTES 23.3 % (20.0-50.0); % MONOCYTES 10.6 % (2.0-10.0); BASOPHILE ABSOLUTE 0.1 Th/cumm (0-0.2); EOSINOPHILE ABSOLUTE 0.4 Th/cmm (0.1-0.4); HEMATOCRIT 38.7 % (41.0-60); HEMOGLOBIN 12.6 gm/dL (12-16); LYMPHOCYTE ABSOLUTE 2.1 Th/cmm (1.5-3.0); MEAN CELL VOLUME 85.4 fl (81-100); MEAN CORPUSCULAR HEMOGLOBIN 27.8 pg (27.0-31.0); MEAN CORPUSCULAR HGB CONC 32.5 pg (28.0-36.0); MEAN PLATELET VOLUME 9.7 fl; MONOCYTE ABSOLUTE 0.9 Th/cmm (0.3-1.0); NEUTROPHILE ABSOLUTE 5.3 Th/cmm (1.8-8.0); PLATELET COUNT 201 Th/cmm (150-400); RED BLOOD COUNT 4.53 Mil/cmm (3.80-5.10); WHITE BLOOD COUNT 8.8 Th/cmm (4.8-10.8)
[2019-03-09 06:22] LABS: URINE BACTERIA FEW /hpf (NONE SEEN); URINE EPITHELIAL CELLS OCCASIONAL /lpf (FEW); URINE WBC >100 /hpf (0-5)
[2019-03-09 06:36] LABS: ANION GAP 11.1 (7.0-16.0); BUN - UREA NITROGEN 9 mg/dL (7-25); CALCIUM SERUM 9.1 mg/dL (8.6-10.3); CARBON DIOXIDE 25.5 mEq/L (21.0-31.0); CHLORIDE 105 mEq/L (98-107); CREATININE - SERUM 0.8 mg/dL (0.6-1.2); GFR AFRICAN-AMERICAN > 60.0 ml/min (>90); GFR NON AFRICAN-AMERICAN > 60.0 ml/min; GLUCOSE 109 mg/dL (70-105); POTASSIUM SERUM 3.6 mEq/L (3.5-5.1); SODIUM SERUM 138 mEq/L (136-145)
[2019-03-09] MEDS: Benztropine 1 MG TAB PO SCH ×2 (08:31→20:31)
[2019-03-09] MEDS: Docusate Sodium/Senna Tab PO SCH ×2 (08:31→16:27)
[2019-03-09] MEDS: Cyproheptadine 4 mg Tab PO SCH ×2 (08:34→16:28)
[2019-03-09] MEDS: Levothyroxine 0.1 Mg Tab PO SCH (08:43)
--- NOTE | 2019-03-09 09:23 | GI Progress Note ---
Subjective - Review of Systems Service Date: 03/09/19 Subjective: Tolerating oral diet. Objective - Results Result Diagrams: 03/09/19 05:45 03/09/19 05:45 Recent Labs: Laboratory Last Values WBC 8.8 Th/cmm (4.8-10.8) 03/09/19 05:45 RBC 4.53 Mil/cmm (3.80-5.10) 03/09/19 05:45 Hgb 12.6 gm/dL (12-16) 03/09/19 05:45 Hct 38.7 % (41.0-60) L 03/09/19 05:45 MCV 85.4 fl (81-100) 03/09/19 05:45 MCH 27.8 pg (27.0-31.0) 03/09/19 05:45 MCHC Differential 32.5 pg (28.0-36.0) 03/09/19 05:45 RDW 13.0 % (11.5-20.0) 03/09/19 05:45 Plt Count 201 Th/cmm (150-400) 03/09/19 05:45 MPV 9.7 fl 03/09/19 05:45 Neutrophils % 61.0 % (40.0-80.0) 03/09/19 05:45 Lymphocytes % 23.3 % (20.0-50.0) 03/09/19 05:45 Monocytes % 10.6 % (2.0-10.0) H 03/09/19 05:45 Eosinophils % 4.1 % (0.0-5.0) 03/09/19 05:45 Basophils % 1.0 % (0.0-2.0) 03/09/19 05:45 Sodium 138 mEq/L (136-145) 03/09/19 05:45 Potassium 3.6 mEq/L (3.5-5.1) 03/09/19 05:45 Chloride 105 mEq/L (98-107) 03/09/19 05:45 Carbon Dioxide 25.5 mEq/L (21.0-31.0) 03/09/19 05:45 Anion Gap 11.1 (7.0-16.0) 03/09/19 05:45 BUN 9 mg/dL (7-25) 03/09/19 05:45 Creatinine 0.8 mg/dL (0.6-1.2) 03/09/19 05:45 Est GFR ( Amer) > 60.0 ml/min (>90) 03/09/19 05:45 Est GFR (Non-Af Amer) > 60.0 ml/min 03/09/19 05:45 BUN/Creatinine Ratio 11.3 03/09/19 05:45 Glucose 109 mg/dL (70-105) H 03/09/19 05:45 POC Glucose 85 MG/DL (70 - 105) 03/07/19 05:34 Calcium 9.1 mg/dL (8.6-10.3) 03/09/19 05:45 Total Bilirubin 0.3 mg/dL (0.3-1.0) 03/06/19 13:30 AST 13 U/L (13-39) 03/06/19 13:30 ALT 22 U/L (7-52) 03/06/19 13:30 Alkaline Phosphatase 72 U/L (34-104) 03/06/19 13:30 Troponin I < 0.01 ng/mL (0.01-0.05) L 03/06/19 13:30 Total Protein 7.3 gm/dL (6.0-8.3) 03/06/19 13:30 Albumin 3.8 gm/dL (3.7-5.3) 03/06/19 13:30 Globulin 3.5 gm/dL 03/06/19 13:30 Albumin/Globulin Ratio 1.1 (1.0-1.8) 03/06/19 13:30 Amylase 85 U/L (29-103) 03/07/19 05:30 Lipase 132 U/L (11-82) H 03/07/19 05:30 Serum , Qual NEGATIVE (NEGATIVE) 03/06/19 13:30 Urine Source CLEAN C 03/09/19 05:10 Urine Color YELLOW 03/09/19 05:10 Urine Clarity HAZY (CLEAR) 03/09/19 05:10 Urine pH 7.0 (4.6 - 8.0) 03/09/19 05:10 Ur Specific [place] >= 1.030 (1.005-1.030) 03/09/19 05:10 Urine Protein 100 mg/dL (NEGATIVE) H 03/09/19 05:10 Urine Glucose (UA) NEGATIVE mg/dL (NEGATIVE) 03/09/19 05:10 Urine Ketones 15 mg/dL (NEGATIVE) H 03/09/19 05:10 Urine Blood LARGE (NEGATIVE) H 03/09/19 05:10 Urine Nitrate POSITIVE (NEGATIVE) H 03/09/19 05:10 Urine Bilirubin NEGATIVE (NEGATIVE) 03/09/19 05:10 Urine Urobilinogen 1.0 E.U./dL (0.2 - 1.0) 03/09/19 05:10 Ur Leukocyte Esterase LARGE (NEGATIVE) H 03/09/19 05:10 Urine RBC 2-5 /hpf (0-5) 03/09/19 05:10 Urine WBC >100 /hpf (0-5) H 03/09/19 05:10 Ur Epithelial Cells OCCASIONAL /lpf (FEW) 03/09/19 05:10 Urine Bacteria FEW /hpf (NONE SEEN) 03/09/19 05:10 Urine Test NEGATIVE 03/06/19 14:20 - Physical Exam Vitals and I&O: Vital Signs Temp 98.4 F 03/09/19 08:00 Pulse 102 03/09/19 08:00 Resp 18 03/09/19 08:00 BP 96/46 03/09/19 08:00 Pulse Ox 94 03/09/19 08:00 Intake & Output 03/08/19 03/09/19 03/09/19 18:59 06:59 18:59 Intake Total 1500 Balance 1500 Weight (lbs) 64.592 kg Intake: Intake, IV Amount 1000 D5-0.45NS 1,000 ml @ 75 1000 mls/hr IV .[id number] [facility] Rx #:[id number] Oral 500 Other: # Voids 3 # Bowel Movements 0 Weight Source Bedscale Active Medications: Current Medications Al Hydrox/Mg Hydrox/Simethicone (Maalox) 30 ml PO Q6HR [facility] Stop: 05/07/19 00:00 Last Admin: 03/09/19 05:40 Dose: 30 ml Benztropine Mesylate (Cogentin) 1 mg PO HS [facility] Stop: 05/07/19 20:59 Last Admin: 03/08/19 21:59 Dose: 1 mg Benztropine Mesylate (Cogentin) 2 mg PO DAILY [facility] Stop: 05/07/19 08:59 Last Admin: 03/09/19 08:31 Dose: 2 mg Clonazepam (Klonopin) 1 mg PO TID [facility] Stop: 05/07/19 08:59 Cyproheptadine HCl (Periactin) 4 mg PO BID [facility] Stop: 05/07/19 08:59 Last Admin: 03/09/19 08:34 Dose: 4 mg Diphenhydramine HCl (Benadryl) 75 mg PO HS [facility] Stop: 05/07/19 20:59 Last Admin: 03/08/19 21:59 Dose: 75 mg Fluoxetine HCl (Prozac) 20 mg PO DAILY [facility]; Protocol Stop: 05/07/19 08:59 Last Admin: 03/09/19 08:30 Dose: 20 mg Gabapentin (Neurontin) 300 mg PO BID [facility] Stop: 05/07/19 08:59 Last Admin: 03/09/19 08:30 Dose: 300 mg Dextrose/Sodium Chloride (D5-0.45ns) 1,000 mls @ 75 mls/hr IV .[id number] [facility] Stop: 05/05/19 17:29 Last Admin: 03/08/19 22:02 Dose: 75 mls/hr Ibuprofen (Motrin) 600 mg PO TID PRN PRN Reason: PAIN Stop: 05/07/19 08:59 Levothyroxine Sodium (Synthroid) 0.1 mg PO QDAC [facility] Stop: 05/08/19 08:29 Last Admin: 03/09/19 08:43 Dose: 0.1 mg Loperamide HCl (Imodium) 2 mg PO PRN PRN PRN Reason: Diarrhea Stop: 05/06/19 22:50 Lorazepam (Ativan) 1 mg IVP Q4HR PRN; Protocol PRN Reason: Agitation Stop: 05/07/19 08:27 Last Admin: 03/08/19 15:28 Dose: 1 mg Morphine Sulfate (Morphine) 1 mg IV Q4H PRN PRN Reason: Pain (Moderate) LEVEL 4-6 Stop: 05/05/19 17:29 Morphine Sulfate (Morphine) 2 mg IV Q4H PRN PRN Reason: Pain (Severe) LEVEL 7-10 Stop: 05/05/19 17:29 Last Admin: 03/07/19 21:59 Dose: 2 mg Mupirocin (Bactroban Oint) 1 appl NS BID [facility] Stop: 03/13/19 09:01 Last Admin: 03/09/19 08:43 Dose: 1 appl Olanzapine (Zyprexa) 5 mg PO BID [facility]; Protocol Stop: 05/07/19 08:59 Last Admin: 03/09/19 08:30 Dose: 5 mg Ondansetron HCl (Zofran) 4 mg IV Q6H PRN PRN Reason: Nausea / Vomiting Stop: 05/05/19 17:29 Promethazine HCl/Dextromethorphan (Phenergan Dm 6.25/15mg-5 Ml) 5 ml PO Q48HR PRN PRN Reason: Cough Stop: 05/06/19 22:50 Quetiapine Fumarate (Seroquel) 300 mg PO TID [facility]; Protocol Stop: 05/07/19 08:59 Last Admin: 03/09/19 08:30 Dose: 300 mg Sennosides (Senna Plus 50 Mg-8.6 Mg) 1 tab PO BID [facility] Stop: 05/07/19 08:59 Last Admin: 03/09/19 08:31 Dose: 1 tab Trazodone HCl (Desyrel) 100 mg PO HS [facility] Stop: 05/07/19 20:59 Zolpidem Tartrate (Ambien) 5 mg PO [facility] Stop: 05/07/19 20:59 Last Admin: 03/08/19 21:59 Dose: 5 mg General: No acute distress HEENT: Atraumatic Cardiovascular: Regular rate Abdomen: Bowel sounds, Soft, no Tender, no Hepatomegaly, no Distended, no Rebound, no Mass Assessment/Plan - Assessment Assessment: # Reported abd pain # Reported vomiting CT scan shows fecal impaction and possible early appendicitis. Surgery has seen the pt, currently managing conservatively. Abd US negative. At current, difficult to ascertain if the pt has any abdominal symptoms. No obvious pain. Plan: - tap water enemas given fecal impaction every 12 hrs for 1 day, then prn - miralax q12 - Dulcolax MI x 1 - oral diet as tolerated - appendicitis management as per surgery - check KUB to assess constipation
--- NOTE | 2019-03-09 09:42 | Diagnostic Imaging Report ---
Exam: HIDA scan HISTORY gallstones Findings: Utilizing 5.3 mCi technetium 99 Choletec examination liver and biliary G was obtained. The study demonstrates normal uptake of the radiopharmaceutical throughout the liver parenchyma. The gallbladder and common bile duct and excretion of the radiopharmaceutical into the small bowel is normal. IMPRESSION: Normal HIDA scan
--- NOTE | 2019-03-09 12:33 | General Progress Note ---
Subjective - Review of Systems Service Date: 03/09/19 Events since last encounter: normal HIDA scan from yesterday no need for surgical intervention at this time patient is comfortable urinary tract infection Objective - Results Result Diagrams: 03/09/19 05:45 03/09/19 05:45 Recent Labs: Laboratory Last Values WBC 8.8 Th/cmm (4.8-10.8) 03/09/19 05:45 RBC 4.53 Mil/cmm (3.80-5.10) 03/09/19 05:45 Hgb 12.6 gm/dL (12-16) 03/09/19 05:45 Hct 38.7 % (41.0-60) L 03/09/19 05:45 MCV 85.4 fl (81-100) 03/09/19 05:45 MCH 27.8 pg (27.0-31.0) 03/09/19 05:45 MCHC Differential 32.5 pg (28.0-36.0) 03/09/19 05:45 RDW 13.0 % (11.5-20.0) 03/09/19 05:45 Plt Count 201 Th/cmm (150-400) 03/09/19 05:45 MPV 9.7 fl 03/09/19 05:45 Neutrophils % 61.0 % (40.0-80.0) 03/09/19 05:45 Lymphocytes % 23.3 % (20.0-50.0) 03/09/19 05:45 Monocytes % 10.6 % (2.0-10.0) H 03/09/19 05:45 Eosinophils % 4.1 % (0.0-5.0) 03/09/19 05:45 Basophils % 1.0 % (0.0-2.0) 03/09/19 05:45 Sodium 138 mEq/L (136-145) 03/09/19 05:45 Potassium 3.6 mEq/L (3.5-5.1) 03/09/19 05:45 Chloride 105 mEq/L (98-107) 03/09/19 05:45 Carbon Dioxide 25.5 mEq/L (21.0-31.0) 03/09/19 05:45 Anion Gap 11.1 (7.0-16.0) 03/09/19 05:45 BUN 9 mg/dL (7-25) 03/09/19 05:45 Creatinine 0.8 mg/dL (0.6-1.2) 03/09/19 05:45 Est GFR ( Amer) > 60.0 ml/min (>90) 03/09/19 05:45 Est GFR (Non-Af Amer) > 60.0 ml/min 03/09/19 05:45 BUN/Creatinine Ratio 11.3 03/09/19 05:45 Glucose 109 mg/dL (70-105) H 03/09/19 05:45 POC Glucose 85 MG/DL (70 - 105) 03/07/19 05:34 Calcium 9.1 mg/dL (8.6-10.3) 03/09/19 05:45 Total Bilirubin 0.3 mg/dL (0.3-1.0) 03/06/19 13:30 AST 13 U/L (13-39) 03/06/19 13:30 ALT 22 U/L (7-52) 03/06/19 13:30 Alkaline Phosphatase 72 U/L (34-104) 03/06/19 13:30 Troponin I < 0.01 ng/mL (0.01-0.05) L 03/06/19 13:30 Total Protein 7.3 gm/dL (6.0-8.3) 03/06/19 13:30 Albumin 3.8 gm/dL (3.7-5.3) 03/06/19 13:30 Globulin 3.5 gm/dL 03/06/19 13:30 Albumin/Globulin Ratio 1.1 (1.0-1.8) 03/06/19 13:30 Amylase 85 U/L (29-103) 03/07/19 05:30 Lipase 132 U/L (11-82) H 03/07/19 05:30 Serum , Qual NEGATIVE (NEGATIVE) 03/06/19 13:30 Urine Source CLEAN C 03/09/19 05:10 Urine Color YELLOW 03/09/19 05:10 Urine Clarity HAZY (CLEAR) 03/09/19 05:10 Urine pH 7.0 (4.6 - 8.0) 03/09/19 05:10 Ur Specific [place] >= 1.030 (1.005-1.030) 03/09/19 05:10 Urine Protein 100 mg/dL (NEGATIVE) H 03/09/19 05:10 Urine Glucose (UA) NEGATIVE mg/dL (NEGATIVE) 03/09/19 05:10 Urine Ketones 15 mg/dL (NEGATIVE) H 03/09/19 05:10 Urine Blood LARGE (NEGATIVE) H 03/09/19 05:10 Urine Nitrate POSITIVE (NEGATIVE) H 03/09/19 05:10 Urine Bilirubin NEGATIVE (NEGATIVE) 03/09/19 05:10 Urine Urobilinogen 1.0 E.U./dL (0.2 - 1.0) 03/09/19 05:10 Ur Leukocyte Esterase LARGE (NEGATIVE) H 03/09/19 05:10 Urine RBC 2-5 /hpf (0-5) 03/09/19 05:10 Urine WBC >100 /hpf (0-5) H 03/09/19 05:10 Ur Epithelial Cells OCCASIONAL /lpf (FEW) 03/09/19 05:10 Urine Bacteria FEW /hpf (NONE SEEN) 03/09/19 05:10 Urine Test NEGATIVE 03/06/19 14:20 - Physical Exam Vitals and I&O: Vital Signs Temp 99.5 F 03/09/19 11:45 Pulse 11 03/09/19 11:45 Resp 18 03/09/19 11:45 BP 115/64 03/09/19 11:45 Pulse Ox 98 03/09/19 11:45 Intake & Output 03/08/19 03/09/19 03/09/19 18:59 06:59 18:59 Intake Total 1500 Balance 1500 Weight (lbs) 142 lb 6.4 oz Intake: Intake, IV Amount 1000 D5-0.45NS 1,000 ml @ 75 1000 mls/hr IV .[id number] [facility] Rx #:[id number] Oral 500 Other: # Voids 3 # Bowel Movements 0 Weight Source Bedscale Active Medications: Current Medications Al Hydrox/Mg Hydrox/Simethicone (Maalox) 30 ml PO Q6HR [facility]O Stop: 05/07/19 00:00 Last Admin: 03/09/19 05:40 Dose: 30 ml Benztropine Mesylate (Cogentin) 1 mg PO HS [facility] Stop: 05/07/19 20:59 Last Admin: 03/08/19 21:59 Dose: 1 mg Benztropine Mesylate (Cogentin) 2 mg PO DAILY [facility] Stop: 05/07/19 08:59 Last Admin: 03/09/19 08:31 Dose: 2 mg Clonazepam (Klonopin) 1 mg PO TID [facility] Stop: 05/07/19 08:59 Cyproheptadine HCl (Periactin) 4 mg PO BID [facility] Stop: 05/07/19 08:59 Last Admin: 03/09/19 08:34 Dose: 4 mg Diphenhydramine HCl (Benadryl) 75 mg PO HS [facility] Stop: 05/07/19 20:59 Last Admin: 03/08/19 21:59 Dose: 75 mg Fluoxetine HCl (Prozac) 20 mg PO DAILY [facility]; Protocol Stop: 05/07/19 08:59 Last Admin: 03/09/19 08:30 Dose: 20 mg Gabapentin (Neurontin) 300 mg PO BID [facility] Stop: 05/07/19 08:59 Last Admin: 03/09/19 08:30 Dose: 300 mg Dextrose/Sodium Chloride (D5-0.45ns) 1,000 mls @ 75 mls/hr IV .[id number] [facility] Stop: 05/05/19 17:29 Last Admin: 03/08/19 22:02 Dose: 75 mls/hr Levofloxacin (Levaquin Pb) 500 mg in 100 mls @ 100 mls/hr IV Q24HR [facility] Stop: 05/08/19 12:59 Ibuprofen (Motrin) 600 mg PO TID PRN PRN Reason: PAIN Stop: 05/07/19 08:59 Levothyroxine Sodium (Synthroid) 0.1 mg PO QDAC [facility] Stop: 05/08/19 08:29 Last Admin: 03/09/19 08:43 Dose: 0.1 mg Loperamide HCl (Imodium) 2 mg PO PRN PRN PRN Reason: Diarrhea Stop: 05/06/19 22:50 Lorazepam (Ativan) 1 mg IVP Q4HR PRN; Protocol PRN Reason: Agitation Stop: 05/07/19 08:27 Last Admin: 03/08/19 15:28 Dose: 1 mg Morphine Sulfate (Morphine) 1 mg IV Q4H PRN PRN Reason: Pain (Moderate) LEVEL 4-6 Stop: 05/05/19 17:29 Morphine Sulfate (Morphine) 2 mg IV Q4H PRN PRN Reason: Pain (Severe) LEVEL 7-10 Stop: 05/05/19 17:29 Last Admin: 03/07/19 21:59 Dose: 2 mg Mupirocin (Bactroban Oint) 1 appl NS BID [facility] Stop: 03/13/19 09:01 Last Admin: 03/09/19 08:43 Dose: 1 appl Olanzapine (Zyprexa) 5 mg PO BID [facility]; Protocol Stop: 05/07/19 08:59 Last Admin: 03/09/19 08:30 Dose: 5 mg Ondansetron HCl (Zofran) 4 mg IV Q6H PRN PRN Reason: Nausea / Vomiting Stop: 05/05/19 17:29 Promethazine HCl/Dextromethorphan (Phenergan Dm 6.25/15mg-5 Ml) 5 ml PO Q48HR PRN PRN Reason: Cough Stop: 05/06/19 22:50 Quetiapine Fumarate (Seroquel) 300 mg PO TID [facility]; Protocol Stop: 05/07/19 08:59 Last Admin: 03/09/19 08:30 Dose: 300 mg Sennosides (Senna Plus 50 Mg-8.6 Mg) 1 tab PO BID [facility] Stop: 05/07/19 08:59 Last Admin: 03/09/19 08:31 Dose: 1 tab Trazodone HCl (Desyrel) 100 mg PO [facility] Stop: 05/07/19 20:59 Zolpidem Tartrate (Ambien) 5 mg PO [facility] Stop: 05/07/19 20:59 Last Admin: 03/08/19 21:59 Dose: 5 mg General: No acute distress HEENT: Atraumatic Neck: Supple Cardiovascular: Regular rate Abdomen: Bowel sounds, Soft, no Tender, no Hepatomegaly, no Distended, no Rebound, no Mass Nutritional Asmnt/Malnutr-PDOC - Dietary Evaluation Malnutrition Findings (Please click <Entered> for more info): Nutritional Asmnt/Malnutrition Start: 03/09/19 11: 32 Text: Status: Active Freq: Protocol: Document 03/09/19 11:32 MMULHERN (Rec: 03/09/19 11:50 MMULHERN DEAN- [email or web address]) Nutritional Asmnt/Malnutrition Patient General Information Nutritional Screening Moderate Risk Diagnosis Intractable abdominal pain, vomiting Pertinent Medical Hx/Surgical Hx Mental retardation, depression , hypothyroidism, anxiety, mood disorder, psychosis Current Diet Order/ Nutrition Support Regular Patient / S.O Not Indicated Pertinent Medications maalox, synthroid, imodium, zofran, phenergan, senna Pertinent Labs (03/09) WNL Nutritional Hx/Data Height 5 ft 3 in Height (Calculated Centimeters) 160.0 Current Weight (lbs) 142 lb Weight (Calculated Kilograms) 64.4 Weight (Calculated Grams) 64359.1 [place] Body Weight 115 % [place] Body Weight 123 Body Mass Index (BMI) 25.1 Recent Weight Change No Weight Status Overweight GI Symptoms GI Symptoms None Last BM none noted since admission Difficult in: None Food Allergies No Cultural/Ethnic/Orthodoxy Belief none indicated Usual diet at home unknown Skin Integrity/Comment: [place] 14, intact Current %PO Poor (25-49%) Estimated Nutritional Goals BEE in Kcals: Using Current wt Calories/Kcals/Kg using CBW 64.5kg Kcals Calculated ~1054-7127 kcal/day Protein: Using Current wt Protein g/kg: .8-1 gm/kg Protein Calculated ~50-65 gm/day Fluid: ml ~6321-8157 kcal/day Nutritional Problem 1. Problem Problem Inadequate oral intake related to Etiology possible poor appetite aeb Signs/Symptoms: PO intake 10-50% of meals Intervention/Recommendation Comments 1. Continue regular diet as tolerated by patient. Encourage oral intake and assist with meals as needed. Expected Outcomes/Goals Expected Outcomes/Goals Oral intake >75% of meals, weight stable, nutrition related labs WNL, skin intact F/U MR 03/12-
[2019-03-09] MEDS: Levofloxacin 500mg/100mL 500 MG/100 ML BAG IV SCH (12:50)
[2019-03-09] MEDS: D5-0.45NS 1,000 ML IV SCH (18:16)
[2019-03-10] MEDS: Maalox 30 mL Cup PO SCH ×5 (00:01→23:31)
[2019-03-10 05:28] LABS: % BASOPHILS 0.3 % (0.0-2.0); % EOSINOPHILS 6.8 % (0.0-5.0); % LYMPHOCYTES 40.8 % (20.0-50.0); % MONOCYTES 9.4 % (2.0-10.0); % NEUTROPHILS 42.7 % (40.0-80.0); EOSINOPHILE ABSOLUTE 0.5 Th/cmm (0.1-0.4); HEMATOCRIT 36.9 % (41.0-60); LYMPHOCYTE ABSOLUTE 3.1 Th/cmm (1.5-3.0); MEAN CELL VOLUME 85.8 fl (81-100); MEAN CORPUSCULAR HEMOGLOBIN 27.9 pg (27.0-31.0); MEAN CORPUSCULAR HGB CONC 32.6 pg (28.0-36.0); MEAN PLATELET VOLUME 10.3 fl; MONOCYTE ABSOLUTE 0.7 Th/cmm (0.3-1.0); NEUTROPHILE ABSOLUTE 3.2 Th/cmm (1.8-8.0); PLATELET COUNT 192 Th/cmm (150-400); RED CELL DISTRIBUTION WIDTH 12.9 % (11.5-20.0); WHITE BLOOD COUNT 7.5 Th/cmm (4.8-10.8)
[2019-03-10 06:28] LABS: ALB/GLOB RATIO 1.2 (1.0-1.8); ALBUMIN 3.3 gm/dL (3.7-5.3); ALKALINE PHOSPHATASE 48 U/L (34-104); ANION GAP 10.2 (7.0-16.0); BILIRUBIN,TOTAL 0.2 mg/dL (0.3-1.0); BUN - UREA NITROGEN 17 mg/dL (7-25); CALCIUM SERUM 8.7 mg/dL (8.6-10.3); CARBON DIOXIDE 24.5 mEq/L (21.0-31.0); CHLORIDE 106 mEq/L (98-107); CREATININE - SERUM 0.9 mg/dL (0.6-1.2); GFR AFRICAN-AMERICAN > 60.0 ml/min (>90); GFR NON AFRICAN-AMERICAN > 60.0 ml/min; GLUCOSE 104 mg/dL (70-105); POTASSIUM SERUM 3.7 mEq/L (3.5-5.1); SGOT 10 U/L (13-39); SGPT/ALT 10 U/L (7-52); SODIUM SERUM 137 mEq/L (136-145)
[2019-03-10] MEDS: Levothyroxine 0.1 Mg Tab PO SCH (06:41)
[2019-03-10] MEDS: D5-0.45NS 1,000 ML IV SCH ×2 (06:45→21:07)
[2019-03-10] MEDS: Docusate Sodium/Senna Tab PO SCH ×2 (09:29→17:32)
[2019-03-10] MEDS: Cyproheptadine 4 mg Tab PO SCH ×2 (09:30→17:31)
[2019-03-10] MEDS: Benztropine 1 MG TAB PO SCH ×2 (09:30→21:06)
--- NOTE | 2019-03-10 10:03 | Diagnostic Imaging Report ---
Exam: KUB of the abdomen HISTORY: Constipation Findings: Frontal examination the abdomen was reviewed. The study demonstrates nonspecific bowel gas pattern. There is no evidence for constipation. Bony structures intact. Stomach distended with air. IMPRESSION: Nonspecific bowel gas pattern.
--- NOTE | 2019-03-10 10:08 | GI Progress Note ---
Subjective - Review of Systems Service Date: 03/10/19 Subjective: Tolerating oral diet. No N/V. Objective - Results Result Diagrams: 03/10/19 05:15 03/10/19 05:15 Recent Labs: Laboratory Last Values WBC 7.5 Th/cmm (4.8-10.8) 03/10/19 05:15 RBC 4.30 Mil/cmm (3.80-5.10) 03/10/19 05:15 Hgb 12.0 gm/dL (12-16) 03/10/19 05:15 Hct 36.9 % (41.0-60) L 03/10/19 05:15 MCV 85.8 fl (81-100) 03/10/19 05:15 MCH 27.9 pg (27.0-31.0) 03/10/19 05:15 MCHC Differential 32.6 pg (28.0-36.0) 03/10/19 05:15 RDW 12.9 % (11.5-20.0) 03/10/19 05:15 Plt Count 192 Th/cmm (150-400) 03/10/19 05:15 MPV 10.3 fl 03/10/19 05:15 Neutrophils % 42.7 % (40.0-80.0) 03/10/19 05:15 Lymphocytes % 40.8 % (20.0-50.0) 03/10/19 05:15 Monocytes % 9.4 % (2.0-10.0) 03/10/19 05:15 Eosinophils % 6.8 % (0.0-5.0) H 03/10/19 05:15 Basophils % 0.3 % (0.0-2.0) 03/10/19 05:15 Sodium 137 mEq/L (136-145) 03/10/19 05:15 Potassium 3.7 mEq/L (3.5-5.1) 03/10/19 05:15 Chloride 106 mEq/L (98-107) 03/10/19 05:15 Carbon Dioxide 24.5 mEq/L (21.0-31.0) 03/10/19 05:15 Anion Gap 10.2 (7.0-16.0) 03/10/19 05:15 BUN 17 mg/dL (7-25) 03/10/19 05:15 Creatinine 0.9 mg/dL (0.6-1.2) 03/10/19 05:15 Est GFR ( Amer) > 60.0 ml/min (>90) 03/10/19 05:15 Est GFR (Non-Af Amer) > 60.0 ml/min 03/10/19 05:15 BUN/Creatinine Ratio 18.9 03/10/19 05:15 Glucose 104 mg/dL (70-105) 03/10/19 05:15 POC Glucose 85 MG/DL (70 - 105) 03/07/19 05:34 Calcium 8.7 mg/dL (8.6-10.3) 03/10/19 05:15 Total Bilirubin 0.2 mg/dL (0.3-1.0) L 03/10/19 05:15 AST 10 U/L (13-39) L 03/10/19 05:15 ALT 10 U/L (7-52) 03/10/19 05:15 Alkaline Phosphatase 48 U/L (34-104) 03/10/19 05:15 Troponin I < 0.01 ng/mL (0.01-0.05) L 03/06/19 13:30 Total Protein 6.0 gm/dL (6.0-8.3) 03/10/19 05:15 Albumin 3.3 gm/dL (3.7-5.3) L 03/10/19 05:15 Globulin 2.7 gm/dL 03/10/19 05:15 Albumin/Globulin Ratio 1.2 (1.0-1.8) 03/10/19 05:15 Amylase 85 U/L (29-103) 03/07/19 05:30 Lipase 132 U/L (11-82) H 03/07/19 05:30 Serum , Qual NEGATIVE (NEGATIVE) 03/06/19 13:30 Urine Source CLEAN C 03/09/19 05:10 Urine Color YELLOW 03/09/19 05:10 Urine Clarity HAZY (CLEAR) 03/09/19 05:10 Urine pH 7.0 (4.6 - 8.0) 03/09/19 05:10 Ur Specific [place] >= 1.030 (1.005-1.030) 03/09/19 05:10 Urine Protein 100 mg/dL (NEGATIVE) H 03/09/19 05:10 Urine Glucose (UA) NEGATIVE mg/dL (NEGATIVE) 03/09/19 05:10 Urine Ketones 15 mg/dL (NEGATIVE) H 03/09/19 05:10 Urine Blood LARGE (NEGATIVE) H 03/09/19 05:10 Urine Nitrate POSITIVE (NEGATIVE) H 03/09/19 05:10 Urine Bilirubin NEGATIVE (NEGATIVE) 03/09/19 05:10 Urine Urobilinogen 1.0 E.U./dL (0.2 - 1.0) 03/09/19 05:10 Ur Leukocyte Esterase LARGE (NEGATIVE) H 03/09/19 05:10 Urine RBC 2-5 /hpf (0-5) 03/09/19 05:10 Urine WBC >100 /hpf (0-5) H 03/09/19 05:10 Ur Epithelial Cells OCCASIONAL /lpf (FEW) 03/09/19 05:10 Urine Bacteria FEW /hpf (NONE SEEN) 03/09/19 05:10 Urine Test NEGATIVE 03/06/19 14:20 - Physical Exam Vitals and I&O: Vital Signs Temp 97.4 F 03/10/19 07:47 Pulse 81 03/10/19 07:47 Resp 18 03/10/19 07:47 BP 96/55 03/10/19 07:47 Pulse Ox 97 03/10/19 07:47 Intake & Output 03/09/19 03/10/19 03/10/19 18:59 06:59 18:59 Intake Total 1000 936.25 Balance 1000 936.25 Weight (lbs) 64.592 kg Intake: Intake, IV Amount 1000 936.25 D5-0.45NS 1,000 ml @ 75 1000 936.25 mls/hr IV .[id number] [facility] Rx #:[id number] Other: # Voids 3 Weight Source Bedscale Active Medications: Current Medications Al Hydrox/Mg Hydrox/Simethicone (Maalox) 30 ml PO Q6HR [facility] Stop: 05/07/19 00:00 Last Admin: 03/10/19 06:41 Dose: Not Given Benztropine Mesylate (Cogentin) 1 mg PO HS [facility] Stop: 05/07/19 20:59 Last Admin: 03/09/19 20:31 Dose: 1 mg Benztropine Mesylate (Cogentin) 2 mg PO DAILY [facility] Stop: 05/07/19 08:59 Last Admin: 03/10/19 09:30 Dose: 2 mg Clonazepam (Klonopin) 1 mg PO TID [facility] Stop: 05/07/19 08:59 Last Admin: 03/10/19 09:30 Dose: 1 mg Cyproheptadine HCl (Periactin) 4 mg PO BID [facility] Stop: 05/07/19 08:59 Last Admin: 03/10/19 09:30 Dose: 4 mg Diphenhydramine HCl (Benadryl) 75 mg PO HS [facility] Stop: 05/07/19 20:59 Last Admin: 03/09/19 20:32 Dose: 75 mg Fluoxetine HCl (Prozac) 20 mg PO DAILY [facility]; Protocol Stop: 05/07/19 08:59 Last Admin: 03/10/19 09:29 Dose: 20 mg Gabapentin (Neurontin) 300 mg PO BID [facility] Stop: 05/07/19 08:59 Last Admin: 03/10/19 09:29 Dose: 300 mg Dextrose/Sodium Chloride (D5-0.45ns) 1,000 mls @ 75 mls/hr IV .[id number] [facility] Stop: 05/05/19 17:29 Last Admin: 03/10/19 06:45 Dose: 75 mls/hr Levofloxacin (Levaquin Pb) 500 mg in 100 mls @ 100 mls/hr IV Q24HR [facility] Stop: 05/08/19 12:59 Last Admin: 03/09/19 12:50 Dose: 100 mls/hr Ibuprofen (Motrin) 600 mg PO TID PRN PRN Reason: PAIN Stop: 05/07/19 08:59 Last Admin: 03/09/19 21:38 Dose: 600 mg Levothyroxine Sodium (Synthroid) 0.1 mg PO QDAC [facility] Stop: 05/08/19 08:29 Last Admin: 03/10/19 06:41 Dose: Not Given Loperamide HCl (Imodium) 2 mg PO PRN PRN PRN Reason: Diarrhea Stop: 05/06/19 22:50 Lorazepam (Ativan) 1 mg IVP Q4HR PRN; Protocol PRN Reason: Agitation Stop: 05/07/19 08:27 Last Admin: 03/08/19 15:28 Dose: 1 mg Morphine Sulfate (Morphine) 1 mg IV Q4H PRN PRN Reason: Pain (Moderate) LEVEL 4-6 Stop: 05/05/19 17:29 Morphine Sulfate (Morphine) 2 mg IV Q4H PRN PRN Reason: Pain (Severe) LEVEL 7-10 Stop: 05/05/19 17:29 Last Admin: 03/07/19 21:59 Dose: 2 mg Mupirocin (Bactroban Oint) 1 appl NS BID [facility] Stop: 03/13/19 09:01 Last Admin: 03/10/19 09:30 Dose: 1 appl Olanzapine (Zyprexa) 5 mg PO BID [facility]; Protocol Stop: 05/07/19 08:59 Last Admin: 03/10/19 09:30 Dose: 5 mg Ondansetron HCl (Zofran) 4 mg IV Q6H PRN PRN Reason: Nausea / Vomiting Stop: 05/05/19 17:29 Promethazine HCl/Dextromethorphan (Phenergan Dm 6.25/15mg-5 Ml) 5 ml PO Q48HR PRN PRN Reason: Cough Stop: 05/06/19 22:50 Quetiapine Fumarate (Seroquel) 300 mg PO TID [facility]; Protocol Stop: 05/07/19 08:59 Last Admin: 03/10/19 09:29 Dose: 300 mg Sennosides (Senna Plus 50 Mg-8.6 Mg) 1 tab PO BID [facility] Stop: 05/07/19 08:59 Last Admin: 03/10/19 09:29 Dose: 1 tab Trazodone HCl (Desyrel) 100 mg PO [facility] Stop: 05/07/19 20:59 Zolpidem Tartrate (Ambien) 5 mg PO [facility] Stop: 05/07/19 20:59 Last Admin: 03/09/19 21:00 Dose: 5 mg General: No acute distress HEENT: Atraumatic Neck: Supple Cardiovascular: Regular rate Abdomen: Bowel sounds, Soft, no Tender, no Hepatomegaly, no Distended, no Rebound, no Mass Assessment/Plan - Assessment Assessment: # Reported abd pain # Reported vomiting CT scan shows fecal impaction and possible early appendicitis. Surgery has seen the pt, currently managing conservatively. Abd US negative. At current, difficult to ascertain if the pt has any abdominal symptoms. No obvious pain. Tolerating oral diet without N/V. KUB now neg for fecal impaction 03/10. Plan: - tap water enemas PRN. - miralax q12 given - Dulcolax OR x 1 given - oral diet as tolerated - appendicitis management as per surgery
--- NOTE | 2019-03-10 12:06 | Internal Medicine Prog Note ---
Internal Medicine Subjective - Subjective Patient is:: awake, verbal, other (Mentally delayed no ditress) Patient Complaints of:: other (Abdominal pain.) Per staff patient has:: no adverse event, no episodes of fall Internal Medicine Objective - Results Result Diagrams: 03/10/19 05:15 03/10/19 05:15 Recent Labs: Laboratory Last Values WBC 7.5 Th/cmm (4.8-10.8) 03/10/19 05:15 RBC 4.30 Mil/cmm (3.80-5.10) 03/10/19 05:15 Hgb 12.0 gm/dL (12-16) 03/10/19 05:15 Hct 36.9 % (41.0-60) L 03/10/19 05:15 MCV 85.8 fl (81-100) 03/10/19 05:15 MCH 27.9 pg (27.0-31.0) 03/10/19 05:15 MCHC Differential 32.6 pg (28.0-36.0) 03/10/19 05:15 RDW 12.9 % (11.5-20.0) 03/10/19 05:15 Plt Count 192 Th/cmm (150-400) 03/10/19 05:15 MPV 10.3 fl 03/10/19 05:15 Neutrophils % 42.7 % (40.0-80.0) 03/10/19 05:15 Lymphocytes % 40.8 % (20.0-50.0) 03/10/19 05:15 Monocytes % 9.4 % (2.0-10.0) 03/10/19 05:15 Eosinophils % 6.8 % (0.0-5.0) H 03/10/19 05:15 Basophils % 0.3 % (0.0-2.0) 03/10/19 05:15 Sodium 137 mEq/L (136-145) 03/10/19 05:15 Potassium 3.7 mEq/L (3.5-5.1) 03/10/19 05:15 Chloride 106 mEq/L (98-107) 03/10/19 05:15 Carbon Dioxide 24.5 mEq/L (21.0-31.0) 03/10/19 05:15 Anion Gap 10.2 (7.0-16.0) 03/10/19 05:15 BUN 17 mg/dL (7-25) 03/10/19 05:15 Creatinine 0.9 mg/dL (0.6-1.2) 03/10/19 05:15 Est GFR ( Amer) > 60.0 ml/min (>90) 03/10/19 05:15 Est GFR (Non-Af Amer) > 60.0 ml/min 03/10/19 05:15 BUN/Creatinine Ratio 18.9 03/10/19 05:15 Glucose 104 mg/dL (70-105) 03/10/19 05:15 POC Glucose 85 MG/DL (70 - 105) 03/07/19 05:34 Calcium 8.7 mg/dL (8.6-10.3) 03/10/19 05:15 Total Bilirubin 0.2 mg/dL (0.3-1.0) L 03/10/19 05:15 AST 10 U/L (13-39) L 03/10/19 05:15 ALT 10 U/L (7-52) 03/10/19 05:15 Alkaline Phosphatase 48 U/L (34-104) 03/10/19 05:15 Troponin I < 0.01 ng/mL (0.01-0.05) L 03/06/19 13:30 Total Protein 6.0 gm/dL (6.0-8.3) 03/10/19 05:15 Albumin 3.3 gm/dL (3.7-5.3) L 03/10/19 05:15 Globulin 2.7 gm/dL 03/10/19 05:15 Albumin/Globulin Ratio 1.2 (1.0-1.8) 03/10/19 05:15 Amylase 85 U/L (29-103) 03/07/19 05:30 Lipase 132 U/L (11-82) H 03/07/19 05:30 Serum , Qual NEGATIVE (NEGATIVE) 03/06/19 13:30 Urine Source CLEAN C 03/09/19 05:10 Urine Color YELLOW 03/09/19 05:10 Urine Clarity HAZY (CLEAR) 03/09/19 05:10 Urine pH 7.0 (4.6 - 8.0) 03/09/19 05:10 Ur Specific [place] >= 1.030 (1.005-1.030) 03/09/19 05:10 Urine Protein 100 mg/dL (NEGATIVE) H 03/09/19 05:10 Urine Glucose (UA) NEGATIVE mg/dL (NEGATIVE) 03/09/19 05:10 Urine Ketones 15 mg/dL (NEGATIVE) H 03/09/19 05:10 Urine Blood LARGE (NEGATIVE) H 03/09/19 05:10 Urine Nitrate POSITIVE (NEGATIVE) H 03/09/19 05:10 Urine Bilirubin NEGATIVE (NEGATIVE) 03/09/19 05:10 Urine Urobilinogen 1.0 E.U./dL (0.2 - 1.0) 03/09/19 05:10 Ur Leukocyte Esterase LARGE (NEGATIVE) H 03/09/19 05:10 Urine RBC 2-5 /hpf (0-5) 03/09/19 05:10 Urine WBC >100 /hpf (0-5) H 03/09/19 05:10 Ur Epithelial Cells OCCASIONAL /lpf (FEW) 03/09/19 05:10 Urine Bacteria FEW /hpf (NONE SEEN) 03/09/19 05:10 Urine Test NEGATIVE 03/06/19 14:20 - Physical Exam Vitals and I&O: Vital Signs Temp 97.4 F 03/10/19 07:47 Pulse 81 03/10/19 07:47 Resp 18 03/10/19 07:47 BP 96/55 03/10/19 07:47 Pulse Ox 97 03/10/19 07:47 Intake & Output 03/09/19 03/10/19 03/10/19 18:59 06:59 18:59 Intake Total 1000 936.25 Balance 1000 936.25 Weight (lbs) 64.592 kg Intake: Intake, IV Amount 1000 936.25 D5-0.45NS 1,000 ml @ 75 1000 936.25 mls/hr IV .[id number] [facility] Rx #:[id number] Other: # Voids 3 Weight Source Bedscale Active Medications: Current Medications Al Hydrox/Mg Hydrox/Simethicone (Maalox) 30 ml PO Q6HR CHARO Stop: 05/07/19 00:00 Last Admin: 03/10/19 06:41 Dose: Not Given Benztropine Mesylate (Cogentin) 1 mg PO HS CHARO Stop: 05/07/19 20:59 Last Admin: 03/09/19 20:31 Dose: 1 mg Benztropine Mesylate (Cogentin) 2 mg PO DAILY [facility] Stop: 05/07/19 08:59 Last Admin: 03/10/19 09:30 Dose: 2 mg Clonazepam (Klonopin) 1 mg PO TID CHARO Stop: 05/07/19 08:59 Last Admin: 03/10/19 09:30 Dose: 1 mg Cyproheptadine HCl (Periactin) 4 mg PO BID CHARO Stop: 05/07/19 08:59 Last Admin: 03/10/19 09:30 Dose: 4 mg Diphenhydramine HCl (Benadryl) 75 mg PO HS CHARO Stop: 05/07/19 20:59 Last Admin: 03/09/19 20:32 Dose: 75 mg Fluoxetine HCl (Prozac) 20 mg PO DAILY [facility]; Protocol Stop: 05/07/19 08:59 Last Admin: 03/10/19 09:29 Dose: 20 mg Gabapentin (Neurontin) 300 mg PO BID [facility] Stop: 05/07/19 08:59 Last Admin: 03/10/19 09:29 Dose: 300 mg Dextrose/Sodium Chloride (D5-0.45ns) 1,000 mls @ 75 mls/hr IV .[id number] [facility] Stop: 05/05/19 17:29 Last Admin: 03/10/19 06:45 Dose: 75 mls/hr Levofloxacin (Levaquin Pb) 500 mg in 100 mls @ 100 mls/hr IV Q24HR CHARO Stop: 05/08/19 12:59 Last Admin: 03/09/19 12:50 Dose: 100 mls/hr Ibuprofen (Motrin) 600 mg PO TID PRN PRN Reason: PAIN Stop: 05/07/19 08:59 Last Admin: 03/09/19 21:38 Dose: 600 mg Levothyroxine Sodium (Synthroid) 0.1 mg PO QDAC [facility] Stop: 05/08/19 08:29 Last Admin: 03/10/19 06:41 Dose: Not Given Loperamide HCl (Imodium) 2 mg PO PRN PRN PRN Reason: Diarrhea Stop: 05/06/19 22:50 Lorazepam (Ativan) 1 mg IVP Q4HR PRN; Protocol PRN Reason: Agitation Stop: 05/07/19 08:27 Last Admin: 03/08/19 15:28 Dose: 1 mg Morphine Sulfate (Morphine) 1 mg IV Q4H PRN PRN Reason: Pain (Moderate) LEVEL 4-6 Stop: 05/05/19 17:29 Morphine Sulfate (Morphine) 2 mg IV Q4H PRN PRN Reason: Pain (Severe) LEVEL 7-10 Stop: 05/05/19 17:29 Last Admin: 03/07/19 21:59 Dose: 2 mg Mupirocin (Bactroban Oint) 1 appl NS BID [facility] Stop: 03/13/19 09:01 Last Admin: 03/10/19 09:30 Dose: 1 appl Olanzapine (Zyprexa) 5 mg PO BID [facility]; Protocol Stop: 05/07/19 08:59 Last Admin: 03/10/19 09:30 Dose: 5 mg Ondansetron HCl (Zofran) 4 mg IV Q6H PRN PRN Reason: Nausea / Vomiting Stop: 05/05/19 17:29 Promethazine HCl/Dextromethorphan (Phenergan Dm 6.25/15mg-5 Ml) 5 ml PO Q48HR PRN PRN Reason: Cough Stop: 05/06/19 22:50 Quetiapine Fumarate (Seroquel) 300 mg PO TID [facility]; Protocol Stop: 05/07/19 08:59 Last Admin: 03/10/19 09:29 Dose: 300 mg Sennosides (Senna Plus 50 Mg-8.6 Mg) 1 tab PO BID [facility] Stop: 05/07/19 08:59 Last Admin: 03/10/19 09:29 Dose: 1 tab Trazodone HCl (Desyrel) 100 mg PO [facility] Stop: 05/07/19 20:59 Zolpidem Tartrate (Ambien) 5 mg PO [facility] Stop: 05/07/19 20:59 Last Admin: 03/09/19 21:00 Dose: 5 mg Physical Exam: 38 y/o female patient has been having abdominal pain and has been vomiting. Abdominal ultrasound was done and it was negative for abnormalities. General: weak, other (Hx of mental delay (MR).) HEENT: NC/AT Neck: Supple, No JVD Lungs: CTAB Cardiovascular: RRR, Normal S1 Abdomen: tender, distended Extremities: clear Neurological: no change Internal Medicine Assmt/Plan - Assessment Assessment: vomitting fecal impaction abdominal pain MR - Plan Plan: npo iv fluid as per order sheet Nutritional Asmnt/Malnutr-PDOC - Dietary Evaluation Malnutrition Findings (Please click <Entered> for more info): Nutritional Asmnt/Malnutrition Start: 03/09/19 11: 32 Text: Status: Complete Freq: Protocol: Document 03/09/19 11:32 MMULGOMEZ (Rec: 03/09/19 11:50 MMULHERN DEAN- [email or web address]) Nutritional Asmnt/Malnutrition Patient General Information Nutritional Screening Moderate Risk Diagnosis Intractable abdominal pain, vomiting Pertinent Medical Hx/Surgical Hx Mental retardation, depression , hypothyroidism, anxiety, mood disorder, psychosis Subjective Information Patient is tolerating current diet order with inconsistent oral intake. Current Diet Order/ Nutrition Support Regular Patient / S.O Not Indicated Pertinent Medications maalox, synthroid, imodium, zofran, phenergan, senna Pertinent Labs (03/09) WNL Nutritional Hx/Data Height 1.6 m Height (Calculated Centimeters) 160.0 Current Weight (lbs) 64.41 kg Weight (Calculated Kilograms) 64.4 Weight (Calculated Grams) 21435.1 [place] Body Weight 115 % [place] Body Weight 123 Body Mass Index (BMI) 25.1 Recent Weight Change No Weight Status Overweight GI Symptoms GI Symptoms None Last BM none noted since admission Difficult in: None Food Allergies No Cultural/Ethnic/Oriental Orthodox Belief none indicated Usual diet at home unknown Skin Integrity/Comment: [place] 14, intact Current %PO Poor (25-49%) Estimated Nutritional Goals BEE in Kcals: Using Current wt Calories/Kcals/Kg using CBW 64.5kg Kcals Calculated ~1349-2232 kcal/day Protein: Using Current wt Protein g/kg: .8-1 gm/kg Protein Calculated ~50-65 gm/day Fluid: ml ~5609-3574 kcal/day Nutritional Problem 1. Problem Problem Inadequate oral intake related to Etiology possible poor appetite aeb Signs/Symptoms: PO intake 10-50% of meals Intervention/Recommendation Comments 1. Continue regular diet as tolerated by patient. Encourage oral intake and assist with meals as needed. 2. Add ensure enlive BID to supplement oral intake. Expected Outcomes/Goals Expected Outcomes/Goals Oral intake >75% of meals, weight stable, nutrition related labs WNL, skin intact F/U MR
[2019-03-10] MEDS: Levofloxacin 500mg/100mL 500 MG/100 ML BAG IV SCH (12:47)
--- NOTE | 2019-03-10 19:54 | Consultation ---
Consult Note - Consult Note Service Date: 03/10/19 Referring Physician: Ry Robison Consult Note: PHYSICIAN Consultation Note: Date of Admission: 03/06/19 Purpose of Consultation: Chief Complaint: Patient JALEN DINERO was admitted to location Medical/ Surgical Unit I with INTRACTABLE ABDOMINAL PAIN, VOMITING. History of Present Illness: 38 Y F WITH HI/O MENTAL RETARDATION, BROUGHT TO THE ER INTRACTABKLE ABD PAIN. SHE WAS FOUND TO HAVE UTI LEVAQUIN IV GIVEN IN THE ER. [facility] WAS CALLED FOR ANTIBIOTIC MANAGEMENT. 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) UNSPECIFIED APPENDICITIS (03/06/19) FECAL IMPACTION (03/06/19) UNSPECIFIED ABDOMINAL PAIN (03/06/19) WEAKNESS (03/06/19) Allergies Allergy/AdvReac Type Severity Reaction Status Date / Time No Known Allergies Allergy Verified 03/06/19 13:09 Vital Signs Temp 98.1 F 03/10/19 16:00 Pulse 89 03/10/19 16:00 Resp 18 03/10/19 16:00 BP 97/59 03/10/19 16:00 Pulse Ox 95 03/10/19 16:00 Intake & Output 03/10/19 03/10/19 03/11/19 06:59 18:59 06:59 Intake Total 936.25 375 Balance 936.25 375 Weight (lbs) 64.592 kg 64.592 kg Intake: Intake, IV Amount 936.25 D5-0.45NS 1,000 ml @ 75 936.25 mls/hr IV .[id number] [facility] Rx #:[id number] Oral 375 Other: # Voids 3 3 # Bowel Movements 1 [facility] Laboratory Results - last 24 hr 03/10/19 03/10/19 05:15 05:15 WBC 7.5 RBC 4.30 Hgb 12.0 Hct 36.9 L MCV 85.8 MCH 27.9 MCHC Differential 32.6 RDW 12.9 Plt Count 192 MPV 10.3 Neutrophils % 42.7 Lymphocytes % 40.8 Monocytes % 9.4 Eosinophils % 6.8 H Basophils % 0.3 Sodium 137 Potassium 3.7 Chloride 106 Carbon Dioxide 24.5 Anion Gap 10.2 BUN 17 Creatinine 0.9 Est GFR ( Amer) > 60.0 Est GFR (Non-Af Amer) > 60.0 BUN/Creatinine Ratio 18.9 Glucose 104 Calcium 8.7 Total Bilirubin 0.2 L AST 10 L ALT 10 Alkaline Phosphatase 48 Total Protein 6.0 Albumin 3.3 L Globulin 2.7 Albumin/Globulin Ratio 1.2 Home Medication Medication Instructions Recorded Type Benztropine [Cogentin*] 1 tab PO HS 03/06/19 History Benztropine [Cogentin*] 2 tab PO DAILY 03/06/19 History Clonazepam [Klonopin] 1 tab PO TID 03/06/19 History Clonidine HCl [Clonidine HCl ER] 0.1 mg PO HS 03/06/19 History Cyproheptadine [Periactin] 1 tab PO BID 03/06/19 History Diphenhydramine HCl [Banophen] 75 mg PO HS 03/06/19 History FLUoxetine HCL [Prozac*] 1 cap PO DAILY 03/06/19 History Gabapentin 300 mg PO BID 03/06/19 History Ibuprofen 1 tab PO TID 03/06/19 History Levothyroxine [Synthroid] 0.5 tab PO DAILY 03/06/19 History Loperamide [Imodium] 1 cap PO PRN PRN 03/06/19 History Mag Hydrox/Al Hydrox/Simeth 30 ml PO Q6HR 03/06/19 History [Almacone Liquid] Magnesium Hydroxide [Milk of 30 ml PO BID 03/06/19 History Magnesia] OLANZapine [ZyPREXA] 1 tab PO BID 03/06/19 History Promethazine DM 6.25/15mg-5mL 1 tsp PO Q48HR PRN 03/06/19 History [Phenergan DM 6.25/15mg-5 mL] QUEtiapine Fumarate [SEROquel] 1 tab PO TID 03/06/19 History QUEtiapine Fumarate [SEROquel] 300 mg PO TID 03/06/19 History Sennosides/Docusate Sodium [Stool 1 tab PO BID 03/06/19 History Softener-Laxative Tablet] Trazodone HCl 100 mg PO HS 03/06/19 History Zolpidem Tartrate [Ambien] 5 mg PO HS 03/06/19 History Current Medications Generic Name Dose Route Start Last Admin Trade Name Freq PRN Reason Stop Dose Admin Al Hydrox/Mg Hydrox/Simethicone 30 ml 03/08/19 00:00 03/10/19 17:32 Maalox PO 05/07/19 00:00 30 ml Q6HR CHARO Administration Benztropine Mesylate 1 mg 03/08/19 21:00 03/09/19 20:31 Cogentin PO 05/07/19 20:59 1 mg HS CHARO Administration Benztropine Mesylate 2 mg 03/08/19 09:00 03/10/19 09:30 Cogentin PO 05/07/19 08:59 2 mg DAILY CHARO Administration Clonazepam 1 mg 03/08/19 09:00 03/10/19 13:43 Klonopin PO 05/07/19 08:59 1 mg TID CHARO Administration Cyproheptadine HCl 4 mg 03/08/19 09:00 03/10/19 17:31 Periactin PO 05/07/19 08:59 4 mg BID CHARO Administration Diphenhydramine HCl 75 mg 03/08/19 21:00 03/09/19 20:32 Benadryl PO 05/07/19 20:59 75 mg HS CHARO Administration Fluoxetine HCl 20 mg 03/08/19 09:00 03/10/19 09:29 Prozac PO 05/07/19 08:59 20 mg DAILY CHARO Administration Protocol Gabapentin 300 mg 03/08/19 09:00 03/10/19 17:31 Neurontin PO 05/07/19 08:59 300 mg BID CHARO Administration Dextrose/Sodium Chloride 1,000 mls @ 75 mls/hr 03/06/19 17:30 03/10/19 06:45 D5-0.45ns IV 05/05/19 17:29 75 mls/hr .[id number] CHARO Administration Levofloxacin 500 mg in 100 mls @ 100 mls/hr 03/09/19 13:00 03/10/19 12:47 Levaquin Pb IV 05/08/19 12:59 100 mls/hr Q24HR CHARO Administration Ibuprofen 600 mg 03/08/19 09:00 03/09/19 21:38 Motrin PO 05/07/19 08:59 600 mg TID PRN Administration PAIN Levothyroxine Sodium 0.1 mg 03/09/19 08:30 03/10/19 06:41 Synthroid PO 05/08/19 08:29 Not Given QDAC CHARO Loperamide HCl 2 mg 03/07/19 22:51 Imodium PO 05/06/19 22:50 PRN PRN Diarrhea Lorazepam 1 mg 03/08/19 08:28 03/08/19 15:28 Ativan IVP 05/07/19 08:27 1 mg Q4HR PRN Administration Agitation Protocol Morphine Sulfate 1 mg 03/06/19 17:20 Morphine IV 05/05/19 17:29 Q4H PRN Pain (Moderate) LEVEL 4-6 Morphine Sulfate 2 mg 03/06/19 17:21 03/07/19 21:59 Morphine IV 05/05/19 17:29 2 mg Q4H PRN Administration Pain (Severe) LEVEL 7-10 Mupirocin 1 appl 03/08/19 17:00 03/10/19 17:32 Bactroban Oint NS 03/13/19 09:01 1 appl BID CHARO Administration Olanzapine 5 mg 03/08/19 09:00 03/10/19 17:31 Zyprexa PO 05/07/19 08:59 5 mg BID CHARO Administration Protocol Ondansetron HCl 4 mg 03/06/19 17:22 Zofran IV 05/05/19 17:29 Q6H PRN Nausea / Vomiting Promethazine HCl/Dextromethorphan 5 ml 03/07/19 22:51 Phenergan Dm 6.25/15mg-5 Ml PO 05/06/19 22:50 Q48HR PRN Cough Quetiapine Fumarate 300 mg 03/08/19 09:00 03/10/19 13:43 Seroquel PO 05/07/19 08:59 300 mg TID CHARO Administration Protocol Sennosides 1 tab 03/08/19 09:00 03/10/19 17:32 Senna Plus 50 Mg-8.6 Mg PO 05/07/19 08:59 1 tab BID CHARO Administration Trazodone HCl 100 mg 03/08/19 21:00 Desyrel PO 05/07/19 20:59 HS CHARO Zolpidem Tartrate 5 mg 03/08/19 21:00 03/09/19 21:00 Ambien PO 05/07/19 20:59 5 mg HS CHARO Administration Review of Systems: A 12 point ROS was reviewed with the pertinent positive and negatives noted in the HPI. Social History Smoking Status Unknown if ever smoked Family Medical History Family Medical History Start: 03/06/19 17: 43 Freq: ONCE Status: Active Protocol: Document 03/06/19 18:40 AZIZA (Rec: 03/06/19 18:40 AZIZA MORAN- [id number]) Family Medical History Mother History Unknown Yes Physical Exam: General: COMFORTABLE, NOT IN ANY DISTRESS. HEENT: HEAD: NC NT, ORAL CAVITY: MOIST, PINK TONGUE, EYES: PALLOR -, ICTERUS - . PUPIL PERRLA, EOMI. Neck: SUPPLE, NO JVD, NO CAROTID BRUIT. Cardio: S1 AND S2 WNL. Respiratory: CTAP. Abdominal: SOFT NT ND BS. Genital/Urinary: DEFERRED. Extremities: NCCE. Neurological: ALERT. Assessment: 1. UTI. 2. MENTAL RETARDATION. Plan: CONTINUE LEVAQUIN AND MAKE FINAL ANTIBIOTIC REGIMEN PER CULTURE REPORT. THANKS Signed, Elio Llamas M.D. 03/10/[id number]
[2019-03-11] MEDS: Levothyroxine 0.1 Mg Tab PO SCH ×2 (05:45→06:33)
[2019-03-11] MEDS: Maalox 30 mL Cup PO SCH ×3 (05:45→17:45)
[2019-03-11] MEDS: D5-0.45NS 1,000 ML IV SCH ×2 (05:47→19:31)
[2019-03-11 06:34] LABS: HEMATOCRIT 34.5 % (41.0-60); HEMOGLOBIN 11.3 gm/dL (12-16); MEAN CELL VOLUME 86.8 fl (81-100); MEAN CORPUSCULAR HEMOGLOBIN 28.3 pg (27.0-31.0); MEAN CORPUSCULAR HGB CONC 32.6 pg (28.0-36.0); MEAN PLATELET VOLUME 10.2 fl; PLATELET COUNT 190 Th/cmm (150-400); RED BLOOD COUNT 3.98 Mil/cmm (3.80-5.10); RED CELL DISTRIBUTION WIDTH 13.2 % (11.5-20.0); WHITE BLOOD COUNT 6.7 Th/cmm (4.8-10.8)
[2019-03-11 06:54] LABS: ALB/GLOB RATIO 1.2 (1.0-1.8); ALBUMIN 3.1 gm/dL (3.7-5.3); ALKALINE PHOSPHATASE 42 U/L (34-104); ANION GAP 9.5 (7.0-16.0); BILIRUBIN,TOTAL 0.2 mg/dL (0.3-1.0); BUN - UREA NITROGEN 16 mg/dL (7-25); CALCIUM SERUM 8.4 mg/dL (8.6-10.3); CARBON DIOXIDE 25.4 mEq/L (21.0-31.0); CHLORIDE 108 mEq/L (98-107); CREATININE - SERUM 0.9 mg/dL (0.6-1.2); GFR AFRICAN-AMERICAN > 60.0 ml/min (>90); GFR NON AFRICAN-AMERICAN > 60.0 ml/min; GLUCOSE 93 mg/dL (70-105); POTASSIUM SERUM 3.9 mEq/L (3.5-5.1); SGOT 10 U/L (13-39); SGPT/ALT 9 U/L (7-52); SODIUM SERUM 139 mEq/L (136-145); TOTAL PROTEIN,SERUM 5.8 gm/dL (6.0-8.3)
[2019-03-11 07:41] LABS: BAND NEUTROPHILE 0 % (0-10); LYMPHOCYTE 40 % (20-50); NEUTROPHILS 43 % (40-80)
[2019-03-11 07:42] LABS: BASOPHIL 0 % (0-3); EOSINOPHIL 8 % (0-5); MONOCYTE 9 % (2-10)
--- NOTE | 2019-03-11 08:38 | GI Progress Note ---
Subjective - Review of Systems Service Date: 03/11/19 Subjective: Eating her breakfast, doing well Objective - Results Result Diagrams: 03/11/19 05:51 03/11/19 05:51 Recent Labs: Laboratory Last Values WBC 6.7 Th/cmm (4.8-10.8) 03/11/19 05:51 RBC 3.98 Mil/cmm (3.80-5.10) 03/11/19 05:51 Hgb 11.3 gm/dL (12-16) L 03/11/19 05:51 Hct 34.5 % (41.0-60) L 03/11/19 05:51 MCV 86.8 fl (81-100) 03/11/19 05:51 MCH 28.3 pg (27.0-31.0) 03/11/19 05:51 MCHC Differential 32.6 pg (28.0-36.0) 03/11/19 05:51 RDW 13.2 % (11.5-20.0) 03/11/19 05:51 Plt Count 190 Th/cmm (150-400) 03/11/19 05:51 MPV 10.2 fl 03/11/19 05:51 Add Manual Diff YES 03/11/19 05:51 Neutrophils % 42.7 % (40.0-80.0) 03/10/19 05:15 Band Neutrophils % 0 % (0-10) 03/11/19 05:51 Lymphocytes % 40.8 % (20.0-50.0) 03/10/19 05:15 Monocytes % 9.4 % (2.0-10.0) 03/10/19 05:15 Eosinophils % 6.8 % (0.0-5.0) H 03/10/19 05:15 Basophils % 0.3 % (0.0-2.0) 03/10/19 05:15 Neutrophils (Manual) 43 % (40-80) 03/11/19 05:51 Lymphocytes 40 % (20-50) 03/11/19 05:51 Monocytes 9 % (2-10) 03/11/19 05:51 Eosinophils 8 % (0-5) H 03/11/19 05:51 Basophils 0 % (0-3) 03/11/19 05:51 Sodium 139 mEq/L (136-145) 03/11/19 05:51 Potassium 3.9 mEq/L (3.5-5.1) 03/11/19 05:51 Chloride 108 mEq/L (98-107) H 03/11/19 05:51 Carbon Dioxide 25.4 mEq/L (21.0-31.0) 03/11/19 05:51 Anion Gap 9.5 (7.0-16.0) 03/11/19 05:51 BUN 16 mg/dL (7-25) 03/11/19 05:51 Creatinine 0.9 mg/dL (0.6-1.2) 03/11/19 05:51 Est GFR ( Amer) > 60.0 ml/min (>90) 03/11/19 05:51 Est GFR (Non-Af Amer) > 60.0 ml/min 03/11/19 05:51 BUN/Creatinine Ratio 17.8 03/11/19 05:51 Glucose 93 mg/dL (70-105) 03/11/19 05:51 POC Glucose 85 MG/DL (70 - 105) 03/07/19 05:34 Calcium 8.4 mg/dL (8.6-10.3) L 03/11/19 05:51 Total Bilirubin 0.2 mg/dL (0.3-1.0) L 03/11/19 05:51 AST 10 U/L (13-39) L 03/11/19 05:51 ALT 9 U/L (7-52) 03/11/19 05:51 Alkaline Phosphatase 42 U/L (34-104) 03/11/19 05:51 Troponin I < 0.01 ng/mL (0.01-0.05) L 03/06/19 13:30 Total Protein 5.8 gm/dL (6.0-8.3) L 03/11/19 05:51 Albumin 3.1 gm/dL (3.7-5.3) L 03/11/19 05:51 Globulin 2.7 gm/dL 03/11/19 05:51 Albumin/Globulin Ratio 1.2 (1.0-1.8) 03/11/19 05:51 Amylase 85 U/L (29-103) 03/07/19 05:30 Lipase 132 U/L (11-82) H 03/07/19 05:30 Serum , Qual NEGATIVE (NEGATIVE) 03/06/19 13:30 Urine Source CLEAN C 03/09/19 05:10 Urine Color YELLOW 03/09/19 05:10 Urine Clarity HAZY (CLEAR) 03/09/19 05:10 Urine pH 7.0 (4.6 - 8.0) 03/09/19 05:10 Ur Specific [place] >= 1.030 (1.005-1.030) 03/09/19 05:10 Urine Protein 100 mg/dL (NEGATIVE) H 03/09/19 05:10 Urine Glucose (UA) NEGATIVE mg/dL (NEGATIVE) 03/09/19 05:10 Urine Ketones 15 mg/dL (NEGATIVE) H 03/09/19 05:10 Urine Blood LARGE (NEGATIVE) H 03/09/19 05:10 Urine Nitrate POSITIVE (NEGATIVE) H 03/09/19 05:10 Urine Bilirubin NEGATIVE (NEGATIVE) 03/09/19 05:10 Urine Urobilinogen 1.0 E.U./dL (0.2 - 1.0) 03/09/19 05:10 Ur Leukocyte Esterase LARGE (NEGATIVE) H 03/09/19 05:10 Urine RBC 2-5 /hpf (0-5) 03/09/19 05:10 Urine WBC >100 /hpf (0-5) H 03/09/19 05:10 Ur Epithelial Cells OCCASIONAL /lpf (FEW) 03/09/19 05:10 Urine Bacteria FEW /hpf (NONE SEEN) 03/09/19 05:10 Urine Test NEGATIVE 03/06/19 14:20 - Physical Exam Vitals and I&O: Vital Signs Temp 99.3 F 03/11/19 03:54 Pulse 84 03/11/19 03:54 Resp 19 03/11/19 08:00 BP 94/46 03/11/19 03:54 Pulse Ox 96 03/11/19 03:54 Intake & Output 03/10/19 03/11/19 03/11/19 18:59 06:59 18:59 Intake Total 375 1750 Balance 375 1750 Weight (lbs) 64.592 kg Intake: Intake, IV Amount 1750 D5-0.45NS 1,000 ml @ 75 1650 mls/hr IV .[id number] ON LICENSE OF [facility] Rx #:[id number] Levofloxacin 500mg/100mL 100 500 mg In 100 ml @ 100 mls/hr IV Q24HR ON LICENSE OF [facility] Rx#: [id number] Oral 375 Other: # Voids 3 # Bowel Movements 1 Weight Source Bedscale Active Medications: Current Medications Al Hydrox/Mg Hydrox/Simethicone (Maalox) 30 ml PO Q6HR CHARO Stop: 05/07/19 00:00 Last Admin: 03/11/19 05:45 Dose: 30 ml Benztropine Mesylate (Cogentin) 1 mg PO HS CHARO Stop: 05/07/19 20:59 Last Admin: 03/10/19 21:06 Dose: 1 mg Benztropine Mesylate (Cogentin) 2 mg PO DAILY [facility] Stop: 05/07/19 08:59 Last Admin: 03/10/19 09:30 Dose: 2 mg Clonazepam (Klonopin) 1 mg PO TID CHARO Stop: 05/07/19 08:59 Last Admin: 03/10/19 21:06 Dose: 1 mg Cyproheptadine HCl (Periactin) 4 mg PO BID [facility] Stop: 05/07/19 08:59 Last Admin: 03/10/19 17:31 Dose: 4 mg Diphenhydramine HCl (Benadryl) 75 mg PO HS CHARO Stop: 05/07/19 20:59 Last Admin: 03/10/19 21:05 Dose: 75 mg Fluoxetine HCl (Prozac) 20 mg PO DAILY ON LICENSE OF [facility]; Protocol Stop: 05/07/19 08:59 Last Admin: 03/10/19 09:29 Dose: 20 mg Gabapentin (Neurontin) 300 mg PO BID ON LICENSE OF [facility] Stop: 05/07/19 08:59 Last Admin: 03/10/19 17:31 Dose: 300 mg Dextrose/Sodium Chloride (D5-0.45ns) 1,000 mls @ 75 mls/hr IV .[id number] ON LICENSE OF [facility] Stop: 05/05/19 17:29 Last Admin: 03/11/19 05:47 Dose: 75 mls/hr Levofloxacin (Levaquin Pb) 500 mg in 100 mls @ 100 mls/hr IV Q24HR CHARO Stop: 05/08/19 12:59 Last Infusion: 03/11/19 05:54 Dose: Infused Ibuprofen (Motrin) 600 mg PO TID PRN PRN Reason: PAIN Stop: 05/07/19 08:59 Last Admin: 03/09/19 21:38 Dose: 600 mg Levothyroxine Sodium (Synthroid) 0.1 mg PO QDAC CHARO Stop: 05/08/19 08:29 Last Admin: 03/11/19 06:33 Dose: 0.1 mg Loperamide HCl (Imodium) 2 mg PO PRN PRN PRN Reason: Diarrhea Stop: 05/06/19 22:50 Lorazepam (Ativan) 1 mg IVP Q4HR PRN; Protocol PRN Reason: Agitation Stop: 05/07/19 08:27 Last Admin: 03/08/19 15:28 Dose: 1 mg Morphine Sulfate (Morphine) 1 mg IV Q4H PRN PRN Reason: Pain (Moderate) LEVEL 4-6 Stop: 05/05/19 17:29 Morphine Sulfate (Morphine) 2 mg IV Q4H PRN PRN Reason: Pain (Severe) LEVEL 7-10 Stop: 05/05/19 17:29 Last Admin: 03/07/19 21:59 Dose: 2 mg Mupirocin (Bactroban Oint) 1 appl NS BID ON LICENSE OF [facility] Stop: 03/13/19 09:01 Last Admin: 03/10/19 17:32 Dose: 1 appl Olanzapine (Zyprexa) 5 mg PO BID ON LICENSE OF [facility]; Protocol Stop: 05/07/19 08:59 Last Admin: 03/10/19 17:31 Dose: 5 mg Ondansetron HCl (Zofran) 4 mg IV Q6H PRN PRN Reason: Nausea / Vomiting Stop: 05/05/19 17:29 Promethazine HCl/Dextromethorphan (Phenergan Dm 6.25/15mg-5 Ml) 5 ml PO Q48HR PRN PRN Reason: Cough Stop: 05/06/19 22:50 Quetiapine Fumarate (Seroquel) 300 mg PO TID ON LICENSE OF [facility]; Protocol Stop: 05/07/19 08:59 Last Admin: 03/10/19 21:05 Dose: 300 mg Sennosides (Senna Plus 50 Mg-8.6 Mg) 1 tab PO BID CHARO Stop: 05/07/19 08:59 Last Admin: 03/10/19 17:32 Dose: 1 tab Trazodone HCl (Desyrel) 100 mg PO HS ON LICENSE OF [facility] Stop: 05/07/19 20:59 Last Admin: 03/10/19 21:05 Dose: 100 mg Zolpidem Tartrate (Ambien) 5 mg PO HS CHARO Stop: 05/07/19 20:59 Last Admin: 03/10/19 21:06 Dose: 5 mg General: No acute distress HEENT: Atraumatic Neck: Supple Cardiovascular: Regular rate Abdomen: Bowel sounds, Soft, no Tender, no Hepatomegaly, no Distended, no Rebound, no Mass Assessment/Plan - Assessment Assessment: # Reported abd pain # Reported vomiting CT scan shows fecal impaction and possible early appendicitis. Surgery has seen the pt, currently managing conservatively. Abd US negative. At current, difficult to ascertain if the pt has any abdominal symptoms. No obvious pain. Tolerating oral diet without N/V. KUB now neg for fecal impaction 03/10. Plan: - tap water enemas PRN. - miralax q12 given - Dulcolax IN x 1 given - oral diet as tolerated - appendicitis management as per surgery - diet as tolerated Gi to see as needed, please call with any questions
[2019-03-11] MEDS: Docusate Sodium/Senna Tab PO SCH ×2 (09:34→17:46)
[2019-03-11] MEDS: Benztropine 1 MG TAB PO SCH ×2 (09:34→20:15)
[2019-03-11] MEDS: Cyproheptadine 4 mg Tab PO SCH ×2 (09:35→17:46)
--- NOTE | 2019-03-11 13:17 | Infectious Disease Prog Note ---
Infectious Disease Subjective - Review of Systems Service Date: 03/11/19 Subjective: There is no new change, no fever. Infectious Disease Objective - Results Result Diagrams: 03/11/19 05:51 03/11/19 05:51 Recent Labs: Laboratory Last Values WBC 6.7 Th/cmm (4.8-10.8) 03/11/19 05:51 RBC 3.98 Mil/cmm (3.80-5.10) 03/11/19 05:51 Hgb 11.3 gm/dL (12-16) L 03/11/19 05:51 Hct 34.5 % (41.0-60) L 03/11/19 05:51 MCV 86.8 fl (81-100) 03/11/19 05:51 MCH 28.3 pg (27.0-31.0) 03/11/19 05:51 MCHC Differential 32.6 pg (28.0-36.0) 03/11/19 05:51 RDW 13.2 % (11.5-20.0) 03/11/19 05:51 Plt Count 190 Th/cmm (150-400) 03/11/19 05:51 MPV 10.2 fl 03/11/19 05:51 Add Manual Diff YES 03/11/19 05:51 Neutrophils % 42.7 % (40.0-80.0) 03/10/19 05:15 Band Neutrophils % 0 % (0-10) 03/11/19 05:51 Lymphocytes % 40.8 % (20.0-50.0) 03/10/19 05:15 Monocytes % 9.4 % (2.0-10.0) 03/10/19 05:15 Eosinophils % 6.8 % (0.0-5.0) H 03/10/19 05:15 Basophils % 0.3 % (0.0-2.0) 03/10/19 05:15 Neutrophils (Manual) 43 % (40-80) 03/11/19 05:51 Lymphocytes 40 % (20-50) 03/11/19 05:51 Monocytes 9 % (2-10) 03/11/19 05:51 Eosinophils 8 % (0-5) H 03/11/19 05:51 Basophils 0 % (0-3) 03/11/19 05:51 Sodium 139 mEq/L (136-145) 03/11/19 05:51 Potassium 3.9 mEq/L (3.5-5.1) 03/11/19 05:51 Chloride 108 mEq/L (98-107) H 03/11/19 05:51 Carbon Dioxide 25.4 mEq/L (21.0-31.0) 03/11/19 05:51 Anion Gap 9.5 (7.0-16.0) 03/11/19 05:51 BUN 16 mg/dL (7-25) 03/11/19 05:51 Creatinine 0.9 mg/dL (0.6-1.2) 03/11/19 05:51 Est GFR ( Amer) > 60.0 ml/min (>90) 03/11/19 05:51 Est GFR (Non-Af Amer) > 60.0 ml/min 03/11/19 05:51 BUN/Creatinine Ratio 17.8 03/11/19 05:51 Glucose 93 mg/dL (70-105) 03/11/19 05:51 POC Glucose 85 MG/DL (70 - 105) 03/07/19 05:34 Calcium 8.4 mg/dL (8.6-10.3) L 03/11/19 05:51 Total Bilirubin 0.2 mg/dL (0.3-1.0) L 03/11/19 05:51 AST 10 U/L (13-39) L 03/11/19 05:51 ALT 9 U/L (7-52) 03/11/19 05:51 Alkaline Phosphatase 42 U/L (34-104) 03/11/19 05:51 Troponin I < 0.01 ng/mL (0.01-0.05) L 03/06/19 13:30 Total Protein 5.8 gm/dL (6.0-8.3) L 03/11/19 05:51 Albumin 3.1 gm/dL (3.7-5.3) L 03/11/19 05:51 Globulin 2.7 gm/dL 03/11/19 05:51 Albumin/Globulin Ratio 1.2 (1.0-1.8) 03/11/19 05:51 Amylase 85 U/L (29-103) 03/07/19 05:30 Lipase 132 U/L (11-82) H 03/07/19 05:30 Serum , Qual NEGATIVE (NEGATIVE) 03/06/19 13:30 Urine Source CLEAN C 03/09/19 05:10 Urine Color YELLOW 03/09/19 05:10 Urine Clarity HAZY (CLEAR) 03/09/19 05:10 Urine pH 7.0 (4.6 - 8.0) 03/09/19 05:10 Ur Specific [place] >= 1.030 (1.005-1.030) 03/09/19 05:10 Urine Protein 100 mg/dL (NEGATIVE) H 03/09/19 05:10 Urine Glucose (UA) NEGATIVE mg/dL (NEGATIVE) 03/09/19 05:10 Urine Ketones 15 mg/dL (NEGATIVE) H 03/09/19 05:10 Urine Blood LARGE (NEGATIVE) H 03/09/19 05:10 Urine Nitrate POSITIVE (NEGATIVE) H 03/09/19 05:10 Urine Bilirubin NEGATIVE (NEGATIVE) 03/09/19 05:10 Urine Urobilinogen 1.0 E.U./dL (0.2 - 1.0) 03/09/19 05:10 Ur Leukocyte Esterase LARGE (NEGATIVE) H 03/09/19 05:10 Urine RBC 2-5 /hpf (0-5) 03/09/19 05:10 Urine WBC >100 /hpf (0-5) H 03/09/19 05:10 Ur Epithelial Cells OCCASIONAL /lpf (FEW) 03/09/19 05:10 Urine Bacteria FEW /hpf (NONE SEEN) 03/09/19 05:10 Urine Test NEGATIVE 03/06/19 14:20 - Physical Exam Vitals and I&O: Vital Signs Temp 98.5 F 03/11/19 12:00 Pulse 85 03/11/19 12:00 Resp 19 03/11/19 12:00 BP 96/56 03/11/19 12:00 Pulse Ox 95 03/11/19 12:00 Intake & Output 03/10/19 03/11/19 03/11/19 18:59 06:59 18:59 Intake Total 375 1750 Balance 375 1750 Weight (lbs) 64.592 kg Intake: Intake, IV Amount 1750 D5-0.45NS 1,000 ml @ 75 1650 mls/hr IV .[id number] [facility] Rx #:[id number] Levofloxacin 500mg/100mL 100 500 mg In 100 ml @ 100 mls/hr IV Q24HR [facility] Rx#: [id number] Oral 375 Other: # Voids 3 # Bowel Movements 1 Weight Source Bedscale Active Medications: Current Medications Al Hydrox/Mg Hydrox/Simethicone (Maalox) 30 ml PO Q6HR [facility] Stop: 05/07/19 00:00 Last Admin: 03/11/19 05:45 Dose: 30 ml Benztropine Mesylate (Cogentin) 1 mg PO HS [facility]O Stop: 05/07/19 20:59 Last Admin: 03/10/19 21:06 Dose: 1 mg Benztropine Mesylate (Cogentin) 2 mg PO DAILY [facility] Stop: 05/07/19 08:59 Last Admin: 03/11/19 09:34 Dose: 2 mg Clonazepam (Klonopin) 1 mg PO TID [facility] Stop: 05/07/19 08:59 Last Admin: 03/11/19 09:34 Dose: 1 mg Cyproheptadine HCl (Periactin) 4 mg PO BID [facility] Stop: 05/07/19 08:59 Last Admin: 03/11/19 09:35 Dose: 4 mg Diphenhydramine HCl (Benadryl) 75 mg PO HS [facility]O Stop: 05/07/19 20:59 Last Admin: 03/10/19 21:05 Dose: 75 mg Fluoxetine HCl (Prozac) 20 mg PO DAILY [facility]; Protocol Stop: 05/07/19 08:59 Last Admin: 03/11/19 09:34 Dose: 20 mg Gabapentin (Neurontin) 300 mg PO BID [facility] Stop: 05/07/19 08:59 Last Admin: 03/11/19 09:33 Dose: 300 mg Dextrose/Sodium Chloride (D5-0.45ns) 1,000 mls @ 75 mls/hr IV .[id number] [facility] Stop: 05/05/19 17:29 Last Admin: 03/11/19 05:47 Dose: 75 mls/hr Levofloxacin (Levaquin Pb) 500 mg in 100 mls @ 100 mls/hr IV Q24HR [facility] Stop: 05/08/19 12:59 Last Infusion: 03/11/19 05:54 Dose: Infused Ibuprofen (Motrin) 600 mg PO TID PRN PRN Reason: PAIN Stop: 05/07/19 08:59 Last Admin: 03/09/19 21:38 Dose: 600 mg Levothyroxine Sodium (Synthroid) 0.1 mg PO QDAC [facility] Stop: 05/08/19 08:29 Last Admin: 03/11/19 06:33 Dose: 0.1 mg Loperamide HCl (Imodium) 2 mg PO PRN PRN PRN Reason: Diarrhea Stop: 05/06/19 22:50 Lorazepam (Ativan) 1 mg IVP Q4HR PRN; Protocol PRN Reason: Agitation Stop: 05/07/19 08:27 Last Admin: 03/08/19 15:28 Dose: 1 mg Morphine Sulfate (Morphine) 1 mg IV Q4H PRN PRN Reason: Pain (Moderate) LEVEL 4-6 Stop: 05/05/19 17:29 Morphine Sulfate (Morphine) 2 mg IV Q4H PRN PRN Reason: Pain (Severe) LEVEL 7-10 Stop: 05/05/19 17:29 Last Admin: 03/07/19 21:59 Dose: 2 mg Mupirocin (Bactroban Oint) 1 appl NS BID [facility] Stop: 03/13/19 09:01 Last Admin: 03/11/19 09:35 Dose: 1 appl Olanzapine (Zyprexa) 5 mg PO BID [facility]; Protocol Stop: 05/07/19 08:59 Last Admin: 03/11/19 09:34 Dose: 5 mg Ondansetron HCl (Zofran) 4 mg IV Q6H PRN PRN Reason: Nausea / Vomiting Stop: 05/05/19 17:29 Promethazine HCl/Dextromethorphan (Phenergan Dm 6.25/15mg-5 Ml) 5 ml PO Q48HR PRN PRN Reason: Cough Stop: 05/06/19 22:50 Quetiapine Fumarate (Seroquel) 300 mg PO TID [facility]; Protocol Stop: 05/07/19 08:59 Last Admin: 03/11/19 09:34 Dose: 300 mg Sennosides (Senna Plus 50 Mg-8.6 Mg) 1 tab PO BID [facility] Stop: 05/07/19 08:59 Last Admin: 03/11/19 09:34 Dose: 1 tab Trazodone HCl (Desyrel) 100 mg PO HS [facility] Stop: 05/07/19 20:59 Last Admin: 03/10/19 21:05 Dose: 100 mg Zolpidem Tartrate (Ambien) 5 mg PO HS [facility] Stop: 05/07/19 20:59 Last Admin: 03/10/19 21:06 Dose: 5 mg General: no acute distress, well developed, well nourished HEENT: atraumatic, normocephalic, PERRLA, EOMI Neck: supple, no thyromegaly Cardiovascular: S1S2, regular Lungs: clear to auscultation bilaterally, clear to percussion Abdomen: soft, no tender, no distended Extremities: no cyanosis, no clubbing, no edema Neurological: awake, alert, oriented Skin: intact Infectious Disease Assmt/Plan - Assessment Assessment: 1. UTI. 2. MENTAL RETARDATION. - Plan Plan: continue levaquin and change antibiotic as per culture report. Nutritional Asmnt/Malnutr-PDOC - Dietary Evaluation Malnutrition Findings (Please click <Entered> for more info): Nutritional Asmnt/Malnutrition Start: 03/09/19 11: 32 Text: Status: Complete Freq: Protocol: Document 03/09/19 11:32 [email or web address] (Rec: 03/09/19 11:50 MMULGOMEZ MORAN- FNS1) Nutritional Asmnt/Malnutrition Patient General Information Nutritional Screening Moderate Risk Diagnosis Intractable abdominal pain, vomiting Pertinent Medical Hx/Surgical Hx Mental retardation, depression , hypothyroidism, anxiety, mood disorder, psychosis Subjective Information Patient is tolerating current diet order with inconsistent oral intake. Current Diet Order/ Nutrition Support Regular Patient / S.O Not Indicated Pertinent Medications maalox, synthroid, imodium, zofran, phenergan, senna Pertinent Labs (03/09) WNL Nutritional Hx/Data Height 1.6 m Height (Calculated Centimeters) 160.0 Current Weight (lbs) 64.41 kg Weight (Calculated Kilograms) 64.4 Weight (Calculated Grams) 01667.1 [place] Body Weight 115 % [place] Body Weight 123 Body Mass Index (BMI) 25.1 Recent Weight Change No Weight Status Overweight GI Symptoms GI Symptoms None Last BM none noted since admission Difficult in: None Food Allergies No Cultural/Ethnic/Temple Belief none indicated Usual diet at home unknown Skin Integrity/Comment: [place] 14, intact Current %PO Poor (25-49%) Estimated Nutritional Goals BEE in Kcals: Using Current wt Calories/Kcals/Kg using CBW 64.5kg Kcals Calculated ~8455-1229 kcal/day Protein: Using Current wt Protein g/kg: .8-1 gm/kg Protein Calculated ~50-65 gm/day Fluid: ml ~8223-9673 kcal/day Nutritional Problem 1. Problem Problem Inadequate oral intake related to Etiology possible poor appetite aeb Signs/Symptoms: PO intake 10-50% of meals Intervention/Recommendation Comments 1. Continue regular diet as tolerated by patient. Encourage oral intake and assist with meals as needed. 2. Add ensure enlive BID to supplement oral intake. Expected Outcomes/Goals Expected Outcomes/Goals Oral intake >75% of meals, weight stable, nutrition related labs WNL, skin intact F/U MR
--- NOTE | 2019-03-11 13:45 | Internal Medicine Prog Note ---
Internal Medicine Subjective - Subjective Service Date: 03/11/19 Patient seen and examined:: with staff Patient is:: awake, verbal, other (Mentally delayed, in no ditress) Patient Complaints of:: other (Abdominal pain.) Per staff patient has:: no adverse event, no episodes of fall Internal Medicine Objective - Results Result Diagrams: 03/11/19 05:51 03/11/19 05:51 Recent Labs: Laboratory Last Values WBC 6.7 Th/cmm (4.8-10.8) 03/11/19 05:51 RBC 3.98 Mil/cmm (3.80-5.10) 03/11/19 05:51 Hgb 11.3 gm/dL (12-16) L 03/11/19 05:51 Hct 34.5 % (41.0-60) L 03/11/19 05:51 MCV 86.8 fl (81-100) 03/11/19 05:51 MCH 28.3 pg (27.0-31.0) 03/11/19 05:51 MCHC Differential 32.6 pg (28.0-36.0) 03/11/19 05:51 RDW 13.2 % (11.5-20.0) 03/11/19 05:51 Plt Count 190 Th/cmm (150-400) 03/11/19 05:51 MPV 10.2 fl 03/11/19 05:51 Add Manual Diff YES 03/11/19 05:51 Neutrophils % 42.7 % (40.0-80.0) 03/10/19 05:15 Band Neutrophils % 0 % (0-10) 03/11/19 05:51 Lymphocytes % 40.8 % (20.0-50.0) 03/10/19 05:15 Monocytes % 9.4 % (2.0-10.0) 03/10/19 05:15 Eosinophils % 6.8 % (0.0-5.0) H 03/10/19 05:15 Basophils % 0.3 % (0.0-2.0) 03/10/19 05:15 Neutrophils (Manual) 43 % (40-80) 03/11/19 05:51 Lymphocytes 40 % (20-50) 03/11/19 05:51 Monocytes 9 % (2-10) 03/11/19 05:51 Eosinophils 8 % (0-5) H 03/11/19 05:51 Basophils 0 % (0-3) 03/11/19 05:51 Sodium 139 mEq/L (136-145) 03/11/19 05:51 Potassium 3.9 mEq/L (3.5-5.1) 03/11/19 05:51 Chloride 108 mEq/L (98-107) H 03/11/19 05:51 Carbon Dioxide 25.4 mEq/L (21.0-31.0) 03/11/19 05:51 Anion Gap 9.5 (7.0-16.0) 03/11/19 05:51 BUN 16 mg/dL (7-25) 03/11/19 05:51 Creatinine 0.9 mg/dL (0.6-1.2) 03/11/19 05:51 Est GFR ( Amer) > 60.0 ml/min (>90) 03/11/19 05:51 Est GFR (Non-Af Amer) > 60.0 ml/min 03/11/19 05:51 BUN/Creatinine Ratio 17.8 03/11/19 05:51 Glucose 93 mg/dL (70-105) 03/11/19 05:51 POC Glucose 85 MG/DL (70 - 105) 03/07/19 05:34 Calcium 8.4 mg/dL (8.6-10.3) L 03/11/19 05:51 Total Bilirubin 0.2 mg/dL (0.3-1.0) L 03/11/19 05:51 AST 10 U/L (13-39) L 03/11/19 05:51 ALT 9 U/L (7-52) 03/11/19 05:51 Alkaline Phosphatase 42 U/L (34-104) 03/11/19 05:51 Troponin I < 0.01 ng/mL (0.01-0.05) L 03/06/19 13:30 Total Protein 5.8 gm/dL (6.0-8.3) L 03/11/19 05:51 Albumin 3.1 gm/dL (3.7-5.3) L 03/11/19 05:51 Globulin 2.7 gm/dL 03/11/19 05:51 Albumin/Globulin Ratio 1.2 (1.0-1.8) 03/11/19 05:51 Amylase 85 U/L (29-103) 03/07/19 05:30 Lipase 132 U/L (11-82) H 03/07/19 05:30 Serum , Qual NEGATIVE (NEGATIVE) 03/06/19 13:30 Urine Source CLEAN C 03/09/19 05:10 Urine Color YELLOW 03/09/19 05:10 Urine Clarity HAZY (CLEAR) 03/09/19 05:10 Urine pH 7.0 (4.6 - 8.0) 03/09/19 05:10 Ur Specific [place] >= 1.030 (1.005-1.030) 03/09/19 05:10 Urine Protein 100 mg/dL (NEGATIVE) H 03/09/19 05:10 Urine Glucose (UA) NEGATIVE mg/dL (NEGATIVE) 03/09/19 05:10 Urine Ketones 15 mg/dL (NEGATIVE) H 03/09/19 05:10 Urine Blood LARGE (NEGATIVE) H 03/09/19 05:10 Urine Nitrate POSITIVE (NEGATIVE) H 03/09/19 05:10 Urine Bilirubin NEGATIVE (NEGATIVE) 03/09/19 05:10 Urine Urobilinogen 1.0 E.U./dL (0.2 - 1.0) 03/09/19 05:10 Ur Leukocyte Esterase LARGE (NEGATIVE) H 03/09/19 05:10 Urine RBC 2-5 /hpf (0-5) 03/09/19 05:10 Urine WBC >100 /hpf (0-5) H 03/09/19 05:10 Ur Epithelial Cells OCCASIONAL /lpf (FEW) 03/09/19 05:10 Urine Bacteria FEW /hpf (NONE SEEN) 03/09/19 05:10 Urine Test NEGATIVE 03/06/19 14:20 - Physical Exam Vitals and I&O: Vital Signs Temp 98.5 F 03/11/19 12:00 Pulse 85 03/11/19 12:00 Resp 19 03/11/19 12:00 BP 96/56 03/11/19 12:00 Pulse Ox 95 03/11/19 12:00 Intake & Output 03/10/19 03/11/19 03/11/19 18:59 06:59 18:59 Intake Total 375 1750 Balance 375 1750 Weight (lbs) 64.592 kg Intake: Intake, IV Amount 1750 D5-0.45NS 1,000 ml @ 75 1650 mls/hr IV .[id number] [facility] Rx #:[id number] Levofloxacin 500mg/100mL 100 500 mg In 100 ml @ 100 mls/hr IV Q24HR [facility] Rx#: [id number] Oral 375 Other: # Voids 3 # Bowel Movements 1 Weight Source Bedscale Active Medications: Current Medications Al Hydrox/Mg Hydrox/Simethicone (Maalox) 30 ml PO Q6HR [facility] Stop: 05/07/19 00:00 Last Admin: 03/11/19 05:45 Dose: 30 ml Benztropine Mesylate (Cogentin) 1 mg PO [facility] Stop: 05/07/19 20:59 Last Admin: 03/10/19 21:06 Dose: 1 mg Benztropine Mesylate (Cogentin) 2 mg PO DAILY [facility] Stop: 05/07/19 08:59 Last Admin: 03/11/19 09:34 Dose: 2 mg Clonazepam (Klonopin) 1 mg PO TID [facility] Stop: 05/07/19 08:59 Last Admin: 03/11/19 09:34 Dose: 1 mg Cyproheptadine HCl (Periactin) 4 mg PO BID [facility] Stop: 05/07/19 08:59 Last Admin: 03/11/19 09:35 Dose: 4 mg Diphenhydramine HCl (Benadryl) 75 mg PO [facility] Stop: 05/07/19 20:59 Last Admin: 03/10/19 21:05 Dose: 75 mg Fluoxetine HCl (Prozac) 20 mg PO DAILY [facility]; Protocol Stop: 05/07/19 08:59 Last Admin: 03/11/19 09:34 Dose: 20 mg Gabapentin (Neurontin) 300 mg PO BID [facility] Stop: 05/07/19 08:59 Last Admin: 03/11/19 09:33 Dose: 300 mg Dextrose/Sodium Chloride (D5-0.45ns) 1,000 mls @ 75 mls/hr IV .[id number] [facility] Stop: 05/05/19 17:29 Last Admin: 03/11/19 05:47 Dose: 75 mls/hr Levofloxacin (Levaquin Pb) 500 mg in 100 mls @ 100 mls/hr IV Q24HR [facility] Stop: 05/08/19 12:59 Last Infusion: 03/11/19 05:54 Dose: Infused Ibuprofen (Motrin) 600 mg PO TID PRN PRN Reason: PAIN Stop: 05/07/19 08:59 Last Admin: 03/09/19 21:38 Dose: 600 mg Levothyroxine Sodium (Synthroid) 0.1 mg PO QDAC [facility] Stop: 05/08/19 08:29 Last Admin: 03/11/19 06:33 Dose: 0.1 mg Loperamide HCl (Imodium) 2 mg PO PRN PRN PRN Reason: Diarrhea Stop: 05/06/19 22:50 Lorazepam (Ativan) 1 mg IVP Q4HR PRN; Protocol PRN Reason: Agitation Stop: 05/07/19 08:27 Last Admin: 03/08/19 15:28 Dose: 1 mg Morphine Sulfate (Morphine) 1 mg IV Q4H PRN PRN Reason: Pain (Moderate) LEVEL 4-6 Stop: 05/05/19 17:29 Morphine Sulfate (Morphine) 2 mg IV Q4H PRN PRN Reason: Pain (Severe) LEVEL 7-10 Stop: 05/05/19 17:29 Last Admin: 03/07/19 21:59 Dose: 2 mg Mupirocin (Bactroban Oint) 1 appl NS BID [facility] Stop: 03/13/19 09:01 Last Admin: 03/11/19 09:35 Dose: 1 appl Olanzapine (Zyprexa) 5 mg PO BID [facility]; Protocol Stop: 05/07/19 08:59 Last Admin: 03/11/19 09:34 Dose: 5 mg Ondansetron HCl (Zofran) 4 mg IV Q6H PRN PRN Reason: Nausea / Vomiting Stop: 05/05/19 17:29 Promethazine HCl/Dextromethorphan (Phenergan Dm 6.25/15mg-5 Ml) 5 ml PO Q48HR PRN PRN Reason: Cough Stop: 05/06/19 22:50 Quetiapine Fumarate (Seroquel) 300 mg PO TID [facility]; Protocol Stop: 05/07/19 08:59 Last Admin: 03/11/19 09:34 Dose: 300 mg Sennosides (Senna Plus 50 Mg-8.6 Mg) 1 tab PO BID [facility] Stop: 05/07/19 08:59 Last Admin: 03/11/19 09:34 Dose: 1 tab Trazodone HCl (Desyrel) 100 mg PO HS [facility] Stop: 05/07/19 20:59 Last Admin: 03/10/19 21:05 Dose: 100 mg Zolpidem Tartrate (Ambien) 5 mg PO HS [facility] Stop: 05/07/19 20:59 Last Admin: 03/10/19 21:06 Dose: 5 mg Physical Exam: 38 y/o female patient has been having abdominal pain and had been vomiting. Abdominal ultrasound was done and it was negative for abnormalities. General: weak, other (Hx of mental delay (MR).) HEENT: NC/AT Neck: Supple, No JVD Lungs: CTAB Cardiovascular: RRR, Normal S1 Abdomen: tender, distended Extremities: clear Neurological: no change Internal Medicine Assmt/Plan - Assessment Assessment: vomiting fecal impaction abdominal pain MR - Plan Plan: npo iv fluid as per order sheet Nutritional Asmnt/Malnutr-PDOC - Dietary Evaluation Malnutrition Findings (Please click <Entered> for more info): Nutritional Asmnt/Malnutrition Start: 03/09/19 11: 32 Text: Status: Complete Freq: Protocol: Document 03/09/19 11:32 [email or web address] (Rec: 03/09/19 11:50 MMULGOMEZ MORAN- FNS1) Nutritional Asmnt/Malnutrition Patient General Information Nutritional Screening Moderate Risk Diagnosis Intractable abdominal pain, vomiting Pertinent Medical Hx/Surgical Hx Mental retardation, depression , hypothyroidism, anxiety, mood disorder, psychosis Subjective Information Patient is tolerating current diet order with inconsistent oral intake. Current Diet Order/ Nutrition Support Regular Patient / S.O Not Indicated Pertinent Medications maalox, synthroid, imodium, zofran, phenergan, senna Pertinent Labs (03/09) WNL Nutritional Hx/Data Height 1.6 m Height (Calculated Centimeters) 160.0 Current Weight (lbs) 64.41 kg Weight (Calculated Kilograms) 64.4 Weight (Calculated Grams) 57785.1 [place] Body Weight 115 % [place] Body Weight 123 Body Mass Index (BMI) 25.1 Recent Weight Change No Weight Status Overweight GI Symptoms GI Symptoms None Last BM none noted since admission Difficult in: None Food Allergies No Cultural/Ethnic/Shinto Belief none indicated Usual diet at home unknown Skin Integrity/Comment: [place] 14, intact Current %PO Poor (25-49%) Estimated Nutritional Goals BEE in Kcals: Using Current wt Calories/Kcals/Kg using CBW 64.5kg Kcals Calculated ~1039-6253 kcal/day Protein: Using Current wt Protein g/kg: .8-1 gm/kg Protein Calculated ~50-65 gm/day Fluid: ml ~4005-9701 kcal/day Nutritional Problem 1. Problem Problem Inadequate oral intake related to Etiology possible poor appetite aeb Signs/Symptoms: PO intake 10-50% of meals Intervention/Recommendation Comments 1. Continue regular diet as tolerated by patient. Encourage oral intake and assist with meals as needed. 2. Add ensure enlive BID to supplement oral intake. Expected Outcomes/Goals Expected Outcomes/Goals Oral intake >75% of meals, weight stable, nutrition related labs WNL, skin intact F/U MR
[2019-03-11] MEDS: Levofloxacin 500mg/100mL 500 MG/100 ML BAG IV SCH (14:00)
[2019-03-12] MEDS: Maalox 30 mL Cup PO SCH ×4 (03:58→17:36)
[2019-03-12] MEDS: D5-0.45NS 1,000 ML IV SCH (05:56)
[2019-03-12] MEDS: Levothyroxine 0.1 Mg Tab PO SCH (09:05)
[2019-03-12] MEDS: Docusate Sodium/Senna Tab PO SCH ×2 (09:05→16:23)
[2019-03-12] MEDS: Cyproheptadine 4 mg Tab PO SCH ×2 (09:07→16:23)
[2019-03-12] MEDS: Benztropine 1 MG TAB PO SCH (09:07)
--- NOTE | 2019-03-12 11:55 | Infectious Disease Prog Note ---
Infectious Disease Subjective - Review of Systems Service Date: 03/12/19 Subjective: There is no new change, no fever. Infectious Disease Objective - Results Result Diagrams: 03/11/19 05:51 03/11/19 05:51 Recent Labs: Laboratory Last Values WBC 6.7 Th/cmm (4.8-10.8) 03/11/19 05:51 RBC 3.98 Mil/cmm (3.80-5.10) 03/11/19 05:51 Hgb 11.3 gm/dL (12-16) L 03/11/19 05:51 Hct 34.5 % (41.0-60) L 03/11/19 05:51 MCV 86.8 fl (81-100) 03/11/19 05:51 MCH 28.3 pg (27.0-31.0) 03/11/19 05:51 MCHC Differential 32.6 pg (28.0-36.0) 03/11/19 05:51 RDW 13.2 % (11.5-20.0) 03/11/19 05:51 Plt Count 190 Th/cmm (150-400) 03/11/19 05:51 MPV 10.2 fl 03/11/19 05:51 Add Manual Diff YES 03/11/19 05:51 Neutrophils % 42.7 % (40.0-80.0) 03/10/19 05:15 Band Neutrophils % 0 % (0-10) 03/11/19 05:51 Lymphocytes % 40.8 % (20.0-50.0) 03/10/19 05:15 Monocytes % 9.4 % (2.0-10.0) 03/10/19 05:15 Eosinophils % 6.8 % (0.0-5.0) H 03/10/19 05:15 Basophils % 0.3 % (0.0-2.0) 03/10/19 05:15 Neutrophils (Manual) 43 % (40-80) 03/11/19 05:51 Lymphocytes 40 % (20-50) 03/11/19 05:51 Monocytes 9 % (2-10) 03/11/19 05:51 Eosinophils 8 % (0-5) H 03/11/19 05:51 Basophils 0 % (0-3) 03/11/19 05:51 Sodium 139 mEq/L (136-145) 03/11/19 05:51 Potassium 3.9 mEq/L (3.5-5.1) 03/11/19 05:51 Chloride 108 mEq/L (98-107) H 03/11/19 05:51 Carbon Dioxide 25.4 mEq/L (21.0-31.0) 03/11/19 05:51 Anion Gap 9.5 (7.0-16.0) 03/11/19 05:51 BUN 16 mg/dL (7-25) 03/11/19 05:51 Creatinine 0.9 mg/dL (0.6-1.2) 03/11/19 05:51 Est GFR ( Amer) > 60.0 ml/min (>90) 03/11/19 05:51 Est GFR (Non-Af Amer) > 60.0 ml/min 03/11/19 05:51 BUN/Creatinine Ratio 17.8 03/11/19 05:51 Glucose 93 mg/dL (70-105) 03/11/19 05:51 POC Glucose 85 MG/DL (70 - 105) 03/07/19 05:34 Calcium 8.4 mg/dL (8.6-10.3) L 03/11/19 05:51 Total Bilirubin 0.2 mg/dL (0.3-1.0) L 03/11/19 05:51 AST 10 U/L (13-39) L 03/11/19 05:51 ALT 9 U/L (7-52) 03/11/19 05:51 Alkaline Phosphatase 42 U/L (34-104) 03/11/19 05:51 Troponin I < 0.01 ng/mL (0.01-0.05) L 03/06/19 13:30 Total Protein 5.8 gm/dL (6.0-8.3) L 03/11/19 05:51 Albumin 3.1 gm/dL (3.7-5.3) L 03/11/19 05:51 Globulin 2.7 gm/dL 03/11/19 05:51 Albumin/Globulin Ratio 1.2 (1.0-1.8) 03/11/19 05:51 Amylase 85 U/L (29-103) 03/07/19 05:30 Lipase 132 U/L (11-82) H 03/07/19 05:30 Serum , Qual NEGATIVE (NEGATIVE) 03/06/19 13:30 Urine Source CLEAN C 03/09/19 05:10 Urine Color YELLOW 03/09/19 05:10 Urine Clarity HAZY (CLEAR) 03/09/19 05:10 Urine pH 7.0 (4.6 - 8.0) 03/09/19 05:10 Ur Specific [place] >= 1.030 (1.005-1.030) 03/09/19 05:10 Urine Protein 100 mg/dL (NEGATIVE) H 03/09/19 05:10 Urine Glucose (UA) NEGATIVE mg/dL (NEGATIVE) 03/09/19 05:10 Urine Ketones 15 mg/dL (NEGATIVE) H 03/09/19 05:10 Urine Blood LARGE (NEGATIVE) H 03/09/19 05:10 Urine Nitrate POSITIVE (NEGATIVE) H 03/09/19 05:10 Urine Bilirubin NEGATIVE (NEGATIVE) 03/09/19 05:10 Urine Urobilinogen 1.0 E.U./dL (0.2 - 1.0) 03/09/19 05:10 Ur Leukocyte Esterase LARGE (NEGATIVE) H 03/09/19 05:10 Urine RBC 2-5 /hpf (0-5) 03/09/19 05:10 Urine WBC >100 /hpf (0-5) H 03/09/19 05:10 Ur Epithelial Cells OCCASIONAL /lpf (FEW) 03/09/19 05:10 Urine Bacteria FEW /hpf (NONE SEEN) 03/09/19 05:10 Urine Test NEGATIVE 03/06/19 14:20 - Physical Exam Vitals and I&O: Vital Signs Temp 98 F 03/12/19 11:37 Pulse 85 03/12/19 11:37 Resp 18 03/12/19 11:37 BP 123/72 03/12/19 11:37 Pulse Ox 98 03/12/19 11:37 Intake & Output 03/11/19 03/12/19 03/12/19 18:59 06:59 18:59 Intake Total 1781.25 Balance 1781.25 Weight (lbs) 61.598 kg Intake: Intake, IV Amount 1781.25 D5-0.45NS 1,000 ml @ 75 1781.25 mls/hr IV .[id number] [facility] Rx #:[id number] Other: Weight Source Bedscale Active Medications: Current Medications Al Hydrox/Mg Hydrox/Simethicone (Maalox) 30 ml PO Q6HR CHARO Stop: 05/07/19 00:00 Last Admin: 03/12/19 11:05 Dose: 30 ml Benztropine Mesylate (Cogentin) 1 mg PO HS CHARO Stop: 05/07/19 20:59 Last Admin: 03/11/19 20:15 Dose: 1 mg Benztropine Mesylate (Cogentin) 2 mg PO DAILY CHARO Stop: 05/07/19 08:59 Last Admin: 03/12/19 09:07 Dose: 2 mg Clonazepam (Klonopin) 1 mg PO TID CHARO Stop: 05/07/19 08:59 Last Admin: 03/12/19 09:07 Dose: 1 mg Cyproheptadine HCl (Periactin) 4 mg PO BID CHARO Stop: 05/07/19 08:59 Last Admin: 03/12/19 09:07 Dose: 4 mg Diphenhydramine HCl (Benadryl) 75 mg PO HS CHARO Stop: 05/07/19 20:59 Last Admin: 03/11/19 20:16 Dose: 75 mg Fluoxetine HCl (Prozac) 20 mg PO DAILY [facility]; Protocol Stop: 05/07/19 08:59 Last Admin: 03/12/19 09:06 Dose: 20 mg Gabapentin (Neurontin) 300 mg PO BID CHARO Stop: 05/07/19 08:59 Last Admin: 03/12/19 09:06 Dose: 300 mg Dextrose/Sodium Chloride (D5-0.45ns) 1,000 mls @ 75 mls/hr IV .[id number] CHARO Stop: 05/05/19 17:29 Last Admin: 03/12/19 05:56 Dose: 75 mls/hr Levofloxacin (Levaquin Pb) 500 mg in 100 mls @ 100 mls/hr IV Q24HR CHARO Stop: 05/08/19 12:59 Last Admin: 03/11/19 14:00 Dose: 100 mls/hr Ibuprofen (Motrin) 600 mg PO TID PRN PRN Reason: PAIN Stop: 05/07/19 08:59 Last Admin: 03/09/19 21:38 Dose: 600 mg Levothyroxine Sodium (Synthroid) 0.1 mg PO QDAC [facility] Stop: 05/08/19 08:29 Last Admin: 03/12/19 09:05 Dose: 0.1 mg Loperamide HCl (Imodium) 2 mg PO PRN PRN PRN Reason: Diarrhea Stop: 05/06/19 22:50 Lorazepam (Ativan) 1 mg IVP Q4HR PRN; Protocol PRN Reason: Agitation Stop: 05/07/19 08:27 Last Admin: 03/08/19 15:28 Dose: 1 mg Morphine Sulfate (Morphine) 1 mg IV Q4H PRN PRN Reason: Pain (Moderate) LEVEL 4-6 Stop: 05/05/19 17:29 Morphine Sulfate (Morphine) 2 mg IV Q4H PRN PRN Reason: Pain (Severe) LEVEL 7-10 Stop: 05/05/19 17:29 Last Admin: 03/07/19 21:59 Dose: 2 mg Mupirocin (Bactroban Oint) 1 appl NS BID [facility] Stop: 03/13/19 09:01 Last Admin: 03/12/19 09:08 Dose: 1 appl Olanzapine (Zyprexa) 5 mg PO BID [facility]; Protocol Stop: 05/07/19 08:59 Last Admin: 03/12/19 09:06 Dose: 5 mg Ondansetron HCl (Zofran) 4 mg IV Q6H PRN PRN Reason: Nausea / Vomiting Stop: 05/05/19 17:29 Promethazine HCl/Dextromethorphan (Phenergan Dm 6.25/15mg-5 Ml) 5 ml PO Q48HR PRN PRN Reason: Cough Stop: 05/06/19 22:50 Quetiapine Fumarate (Seroquel) 300 mg PO TID [facility]; Protocol Stop: 05/07/19 08:59 Last Admin: 03/12/19 09:08 Dose: 300 mg Sennosides (Senna Plus 50 Mg-8.6 Mg) 1 tab PO BID [facility] Stop: 05/07/19 08:59 Last Admin: 03/12/19 09:05 Dose: 1 tab Trazodone HCl (Desyrel) 100 mg PO [facility] Stop: 05/07/19 20:59 Last Admin: 03/11/19 20:15 Dose: 100 mg Zolpidem Tartrate (Ambien) 5 mg PO [facility] Stop: 05/07/19 20:59 Last Admin: 03/11/19 20:16 Dose: 5 mg General: no acute distress, well developed, well nourished HEENT: atraumatic, normocephalic, PERRLA, EOMI Neck: supple, no thyromegaly Cardiovascular: S1S2, regular Lungs: clear to auscultation bilaterally, clear to percussion Abdomen: soft, no tender, no distended, no rebound Extremities: no cyanosis, no clubbing Neurological: awake Skin: intact Infectious Disease Assmt/Plan - Assessment Assessment: 1. UTI. 2. MENTAL RETARDATION. - Plan Plan: continue levaquin and change antibiotic as per culture report. Nutritional Asmnt/Malnutr-PDOC - Dietary Evaluation Malnutrition Findings (Please click <Entered> for more info): Nutritional Asmnt/Malnutrition Start: 03/09/19 11: 32 Text: Status: Complete Freq: Protocol: Document 03/09/19 11:32 [email or web address] (Rec: 03/09/19 11:50 MMULGOMEZ MORAN [email or web address]) Nutritional Asmnt/Malnutrition Patient General Information Nutritional Screening Moderate Risk Diagnosis Intractable abdominal pain, vomiting Pertinent Medical Hx/Surgical Hx Mental retardation, depression , hypothyroidism, anxiety, mood disorder, psychosis Subjective Information Patient is tolerating current diet order with inconsistent oral intake. Current Diet Order/ Nutrition Support Regular Patient / S.O Not Indicated Pertinent Medications maalox, synthroid, imodium, zofran, phenergan, senna Pertinent Labs (03/09) WNL Nutritional Hx/Data Height 1.6 m Height (Calculated Centimeters) 160.0 Current Weight (lbs) 64.41 kg Weight (Calculated Kilograms) 64.4 Weight (Calculated Grams) 75268.1 [place] Body Weight 115 % [place] Body Weight 123 Body Mass Index (BMI) 25.1 Recent Weight Change No Weight Status Overweight GI Symptoms GI Symptoms None Last BM none noted since admission Difficult in: None Food Allergies No Cultural/Ethnic/Anab[employer]ist Belief none indicated Usual diet at home unknown Skin Integrity/Comment: [place] 14, intact Current %PO Poor (25-49%) Estimated Nutritional Goals BEE in Kcals: Using Current wt Calories/Kcals/Kg using CBW 64.5kg Kcals Calculated ~1805-6756 kcal/day Protein: Using Current wt Protein g/kg: .8-1 gm/kg Protein Calculated ~50-65 gm/day Fluid: ml ~4682-9541 kcal/day Nutritional Problem 1. Problem Problem Inadequate oral intake related to Etiology possible poor appetite aeb Signs/Symptoms: PO intake 10-50% of meals Intervention/Recommendation Comments 1. Continue regular diet as tolerated by patient. Encourage oral intake and assist with meals as needed. 2. Add ensure enlive BID to supplement oral intake. Expected Outcomes/Goals Expected Outcomes/Goals Oral intake >75% of meals, weight stable, nutrition related labs WNL, skin intact F/U MR
[2019-03-12] MEDS: Levofloxacin 500mg/100mL 500 MG/100 ML BAG IV SCH (12:04)
--- NOTE | 2019-03-18 19:39 | Discharge Summary ---
DATE OF DISCHARGE: 03/12/2019 This patient was admitted due to intractable abdominal pain on 03/06 at 17:14 at [facility] and Dr. Russell Oliver, the ER doctor, called me regarding severe pain. He came from [facility] home and his initial impression was the patient has abdominal pain, possible obstruction and possible fecal impaction. The patient was admitted and IV fluids were given and a GI consult as well as a surgical consult and the patient gradually improved. The patient did have fecal impaction and with laxatives has improved. The patient was in stable condition on 03/12/2019, discharged to [facility] where I will follow the patient. CONDITION AT THE TIME OF DISCHARGE: Stable. DIAGNOSES: Status post fecal impaction, status post disimpaction, abdominal pain resolved and history of mental challenge. [facility]# [id number]
== END 2019-03-12 18:40 | disposition home or self-care (01) | DRG 463 ==
LOC: ER 12:42 → MSI 17:14
PROVIDERS: ADMIT Internal Medicine; ATTEND Internal Medicine
DX: N39.0 Urinary tract infection, site not specified (principal); I95.9 Hypotension, unspecified; K56.41 Fecal impaction; K37 Unspecified appendicitis; K80.10 Calculus of gallbladder with chronic cholecystitis without obstruction; F79 Unspecified intellectual disabilities; K52.9 Noninfective gastroenteritis and colitis, unspecified; K29.70 Gastritis, unspecified, without bleeding; F41.9 Anxiety disorder, unspecified; E86.0 Dehydration
CPT/HCPCS: 36415-UA; 74000-TC; 76700-TC; 78226-TC; 80048-TC; 80053-TC; 81001-TC; 81003-TC; 81025-TC; 82150-TC; 82948-90; 83690-TC; 84484-TC; 84703-TC; 85007-TC; 85025-TC; 87086-90; 96374; A9537; J1956; J2060; J2270; J2405; J7030; J7051; Z7610